=== PATIENT | female | born 1955 | race Caucasian/White ===

== ENCOUNTER 2016-06-12 18:15 | Emergency (ER) | payer MEDICARE, MEDICAID ==
[~2016-06-12] VITALS: Ht 152.4 cm; Wt 40.0 kg
[~2016-06-12 18:15] MED LIST: ADVA250A INH; ALBU6.7H INH; CELE20TA PO; DIAZ5; DUONI NEB; MAXZ25 PO; PRED10 PO; Z.0.OXYGEN INH; ZYRT10TA12 PO
[2016-06-12 18:31] VITALS: BP 186/79; PULSE 98; RESP 32; TEMP 98; O2SAT 100
--- NOTE | 2016-06-12 18:34 | PD ---
HPI Chief Complaint: Pain: Acute or Chronic Time Seen by Provider: 18:31 Travel History International Travel<30 days: No Contact w/Intl Traveler<30days: No Traveled to known affect area: No History of Present Illness HPI 60-year-old female with history of COPD on home O2, presents to the ER today with worsening and shortness of breath for several days. She denies any fevers , abdominal pains, or any other symptoms. She has noticed that her feet were swelling. Modifying Factors: None Associated Signs & Symptoms: Worsening shortness of breath Risk Factors: COPD PFSH Past Medical History Arthritis: Yes Asthma: Yes Autoimmune Disease: No Blood Disorders: No Anxiety: Yes Depression: Yes Heart Rhythm Problems: No Cancer: Yes (L BREAST CA) Cardiovascular Problems: No High Cholesterol: Yes Chemotherapy: No Chest Pain: Yes Congestive Heart Failure: No COPD: Yes Coronary Artery Disease: No Diabetes: No Endocrine: No Gastrointestinal Disorders: Yes (HX GERD) GERD: Yes Genitourinary: Yes ("NARROW URETERS") Headaches: Yes Hepatitis: No Hiatal Hernia: No Hypertension: Yes Immune Disorder: No Kidney Stones: Yes Musculoskeletal: Yes (SCOLIOSIS) Neurologic: Yes (VERTIGO, HEADACHES DAILY) Psychiatric: Yes (CLAUSTRAPHOBIA, ANXIETY, DEPRESSION,PANIC ATTACKS) Reproductive: No Respiratory: Yes (COPD, EMPHYSEMA) Myocardial Infarction: No Radiation Therapy: Yes (2013) Thyroid Disease: No Menopausal: Yes Dilation and Curettage (D&C): Yes Past Surgical History Abdominal Surgery: Yes (CHOLECYSTECTOMY) AICD: No Body Medical Devices: N/A Cardiac Surgery: No Cholecystectomy: Yes Ear Surgery: No Endocrine Surgery: No Eye Surgery: Yes (CATARACT BILAT) Genitourinary Surgery: Yes (CYSTO, URETEROSTOMY, CALCULI RETRIEVAL) Gynecologic Surgery: Yes (D+C) Joint Replacement: No Oral Surgery: Yes (UPPER DENTURES) Pacemaker: No Thoracic Surgery: No Other Surgery: Yes Social History Alcohol Use: Yes (OCC) Tobacco Use: No (QUIT 2008) Substance Use: No Allergies-Medications (Allergen,Severity, Reaction): Coded Allergies: Cephalosporins (Verified Allergy, Severe, ANAPHALACTIC, 06/12/16) DENIES ALLERGY ON 07/22/12!!! STATES ANAPHYLAXIS WAS "PANIC ATTACK" Doxycycline (Verified Allergy, Severe, 06/12/16) Levaquin (Verified Allergy, Severe, SWELLING AND REDNESS, 06/12/16) Paxil (Verified Allergy, Severe, 06/12/16) Penicillin (Verified Allergy, Severe, 06/12/16) SSRI-Serotonin Reuptake Inhib (Verified Allergy, Severe, 06/12/16) Theophylline (Verified Allergy, Severe, Flushing, 06/12/16) Wellbutrin (Verified Allergy, Severe, 06/12/16) Reported Meds & Prescriptions Reported Meds & Active Scripts Active Reported Hydrocodone-Acetaminophen 10-325 mg Tab 1 Tab PO Q6H PRN Prednisone 20 Mg Tab 20 Mg PO BID Maxzide-25 (Triamterene-Hydrochlorothiazide) 37.5-25 Mg Tab 1 Tab PO DAILY Advair Diskus Inh (Fluticasone-Salmeterol Inh) 250-50 Mcg/Blist Aer 1 Puff INH BID Rinse mouth after use. Valium (Diazepam) 5 Mg Tab 5 Mg PO BID PRN Celexa (Citalopram Hydrobromide) 20 Mg Tab 20 Mg PO DAILY Zyrtec Allergy (Cetirizine HCl) 10 Mg Tab 10 Mg PO DAILY Albuterol Neb (Albuterol Sulfate) 1.25 Mg/3 Ml Neb 1.25 Mg NEB Q4HR NEB PRN Proventil Hfa 6.7 GM Inh (Albuterol Sulfate) 90 Mcg/Act Aer 2 Puff INH Q4-6H PRN Review of Systems Except as stated in HPI: all other systems reviewed are Neg Physical Exam Narrative GENERAL: Thin, well-developed elderly white female patient in mild respiratory distress at rest. SKIN: Warm and dry. HEAD: Normocephalic. EYES: No scleral icterus. No injection or drainage. NECK: Supple, trachea midline. CARDIOVASCULAR: Regular rate and rhythm without murmurs, gallops, or rubs. RESPIRATORY: Breath sounds equal and decreased throughout bilaterally. Moderate accessory muscle use. GASTROINTESTINAL: Abdomen soft, non-tender, nondistended. MUSCULOSKELETAL: No cyanosis, or edema. BACK: Nontender without obvious deformity. No CVA tenderness. Data Data Last Documented VS Vital Signs Date Time Temp Pulse Resp B/P Pulse Ox O2 Delivery O2 Flow Rate FiO2 06/12/16 18:38 99 06/12/16 18:38 Nasal Cannula 2 06/12/16 18:31 98.0 98 32 186/79 Orders Complete Blood Count With Diff (06/12/16 18:31) Comprehensive Metabolic Panel (06/12/16 18:31) B-Type Natriuretic Peptide (06/12/16 18:31) Iv Access Insert/Monitor (06/12/16 18:31) Electrocardiogram (06/12/16 18:31) Ecg Monitoring (06/12/16 18:31) Oximetry (06/12/16 18:31) Oxygen Administration (06/12/16 18:31) Chest, Single Ap (06/12/16 18:31) Sodium Chloride 0.9% Flush (Ns Flush) (06/12/16 18:45) Methylprednisolone So Succ Inj (Solumedr (06/12/16 18:45) Albuterol-Ipratropium Neb (Duoneb Neb) (06/12/16 18:45) MDM Medical Decision Making Medical Screen Exam Complete: Yes Emergency Medical Condition: Yes Medical Record Reviewed: Yes Differential Diagnosis Shortness of breathCOPD exacerbation versus pneumonia versus CHF Narrative Course Patient is initiated on Solu-Medrol and nebulizers in the ER. Lab work and chest x-ray ordered. Physician Communication Physician Communication Case is signed out to Dr. Deleon at 7 PM. Disposition based on findings and reevaluation after nebulizers. Diagnosis Primary Impression: COPD (chronic obstructive pulmonary disease) Ty Denny MD Jun 12, 2016 18:33
[2016-06-12 18:38] VITALS: O2SAT 99
[2016-06-12] MEDS ORDERED: ZYRT10TA PO (18:43)
[2016-06-12] MEDS ORDERED: ALBU1.25 NEB (18:43)
[2016-06-12] MEDS ORDERED: ALBU6.7H INH (18:43)
[2016-06-12] MEDS ORDERED: CELE20TA PO (18:43)
[2016-06-12] MEDS ORDERED: HYDR-3583 PO (18:44)
[2016-06-12] MEDS ORDERED: MAXZTAB PO (18:44)
[2016-06-12] MEDS ORDERED: ADVA250A INH (18:44)
[2016-06-12] MEDS ORDERED: DIAZ5 PO (18:44)
[2016-06-12] MEDS ORDERED: PRED20 PO (18:44)
[2016-06-12] MEDS ORDERED: methylPREDNISolone SOD SUCC 125 MG/2 ML VIAL IVP ONE (18:45)
[2016-06-12] MEDS ORDERED: SODIUM CHLORIDE 0.9% FLUSH 5 ML FLUSH IVF PRN (18:45)
[2016-06-12 19:00] VITALS: O2SAT 95
[2016-06-12] MEDS: RESP: ALBUTEROL 2.5 MG/IPRATROPIUM 0.5 MG NEB (SCH) INH (19:02)
[2016-06-12 19:24] LABS: BASOPHIL % 0.4 % (0.0-2.0); EOSINOPHIL # 0.1 TH/MM3 (0-0.4); EOSINOPHIL % 1.7 % (0.0-4.0); HEMATOCRIT 37.1 % (35.0-46.0); HEMO FLAGS DIFF FINAL; LYMPH % 17.3 % (9.0-44.0); LYMPHOCYTE # 1.2 TH/MM3 (1.0-4.8); MEAN CELL VOLUME 92.6 FL (80.0-100.0); MEAN CORPUSCULAR HEMOGLOBIN 30.8 PG (27.0-34.0); MEAN CORPUSCULAR HGB CONC 33.3 % (32.0-36.0); MONO % 9.4 % (0.0-8.0); NEUT % 71.2 % (16.0-70.0); PLATELET COUNT 256 TH/MM3 (150-450); RED BLOOD COUNT 4.01 MIL/MM3 (4.00-5.30); RED CELL DISTRIBUTION WIDTH 12.8 % (11.6-17.2)
--- NOTE | 2016-06-12 19:24 | PD ---
Physical Exam Date Seen by Provider: Jun 12, 2016 [facility] Care assumed at 1900. Patient is here for increasing shortness of breath, lower extremity swelling and pain and increased low back pain. GENERAL: Patient is currently receiving a nebulizer treatment. She is able to speak to me complete sentences. She seems somewhat anxious. SKIN: Warm and dry. HEAD: Atraumatic. Normocephalic. Bitemporal wasting. EYES: Pupils equal and round. ENT: No nasal bleeding or discharge. NECK: Trachea midline. Neck is supple. CARDIOVASCULAR: Regular rate and rhythm. Heart sounds are normal. RESPIRATORY: No accessory muscle use. She does have some crackles. GASTROINTESTINAL: Abdomen soft, non-tender, nondistended. MUSCULOSKELETAL: No obvious deformities. No edema. Tender to palpation in the lower L-spine. The tenderness is midline. NEUROLOGICAL: Awake and alert. No obvious cranial nerve deficits. Motor grossly within normal limits. Normal speech. PSYCHIATRIC: Appropriate mood and affect. Seems somewhat anxious. Data Data Last Documented VS Vital Signs Date Time Temp Pulse Resp B/P Pulse Ox O2 Delivery O2 Flow Rate FiO2 06/12/16 23:02 86 16 135/69 95 Nasal Cannula 3 06/12/16 18:31 98.0 Orders Complete Blood Count With Diff (06/12/16 18:31) Comprehensive Metabolic Panel (06/12/16 18:31) B-Type Natriuretic Peptide (06/12/16 18:31) Iv Access Insert/Monitor (06/12/16 18:31) Electrocardiogram (06/12/16 18:31) Ecg Monitoring (06/12/16 18:31) Oximetry (06/12/16 18:31) Oxygen Administration (06/12/16 18:31) Chest, Single Ap (06/12/16 18:31) Sodium Chloride 0.9% Flush (Ns Flush) (06/12/16 18:45) Methylprednisolone So Succ Inj (Solumedr (06/12/16 18:45) Albuterol-Ipratropium Neb (Duoneb Neb) (06/12/16 18:45) Spine, Lumbar Comp W/Obliq (06/12/16 19:17) Urinalysis - C+S If Indicated (06/12/16 19:17) Lorazepam Inj (Ativan Inj) (06/12/16 19:30) Morphine Inj (Morphine Inj) (06/12/16 19:30) Cath For Specimen (06/12/16 22:50) Urine Culture (06/12/16 23:00) Labs Laboratory Tests Test 06/12/16 06/12/16 18:51 23:00 White Blood Count 7.0 TH/MM3 Red Blood Count 4.01 MIL/MM3 Hemoglobin 12.4 GM/DL Hematocrit 37.1 % Mean Corpuscular Volume 92.6 FL Mean Corpuscular Hemoglobin 30.8 PG Mean Corpuscular Hemoglobin 33.3 % Concent Red Cell Distribution Width 12.8 % Platelet Count 256 TH/MM3 Mean Platelet Volume 7.0 FL Neutrophils (%) (Auto) 71.2 % Lymphocytes (%) (Auto) 17.3 % Monocytes (%) (Auto) 9.4 % Eosinophils (%) (Auto) 1.7 % Basophils (%) (Auto) 0.4 % Neutrophils # (Auto) 5.0 TH/MM3 Lymphocytes # (Auto) 1.2 TH/MM3 Monocytes # (Auto) 0.7 TH/MM3 Eosinophils # (Auto) 0.1 TH/MM3 Basophils # (Auto) 0.0 TH/MM3 CBC Comment DIFF FINAL Differential Comment Sodium Level 143 MEQ/L Potassium Level 3.8 MEQ/L Chloride Level 101 MEQ/L Carbon Dioxide Level 36.3 MEQ/L Anion Gap 6 MEQ/L Blood Urea Nitrogen 5 MG/DL Creatinine 0.30 MG/DL Estimat Glomerular Filtration 225 ML/MIN Rate Random Glucose 72 MG/DL Calcium Level 7.5 MG/DL Total Bilirubin 0.1 MG/DL Aspartate Amino Transf 19 U/L (AST/SGOT) Alanine Aminotransferase 19 U/L (ALT/SGPT) Alkaline Phosphatase 84 U/L B-Type Natriuretic Peptide 20 PG/ML Total Protein 5.4 GM/DL Albumin 2.8 GM/DL Urine Color YELLOW Urine Turbidity CLEAR Urine pH 7.0 Urine Specific [place] 1.009 Urine Protein NEG mg/dL Urine Glucose (UA) NEG mg/dL Urine Ketones TRACE mg/dL Urine Occult Blood NEG Urine Nitrite NEG Urine Bilirubin NEG Urine Urobilinogen LESS THAN 2.0 MG/DL Urine Leukocyte Esterase NEG Urine RBC LESS THAN 1 /hpf Urine WBC LESS THAN 1 /hpf Microscopic Urinalysis Comment CATH-CULTURE IND MDM Supervised Visit with PIOTR: No Interpretation(s) EKG shows a normal sinus rhythm with no acute ischemic change. Differential Diagnosis Differential diagnosis of dyspnea includes but is not limited to congestive heart failure, pneumonia, wheezing, pneumothorax, pulmonary embolism. Differential diagnosis of back pain includes but is not limited to muscular low back pain, DDD, spinal stenosis, epidural abscess, sciatica, kidney infection or stone. Narrative Course Patient is being evaluated for increased dyspnea as well as low back pain. Chest x-ray is negative to the radiologist's interpretation. Chest x-ray was independently viewed by me. L-spine series shows degenerative changes and compression deformities at L2, L3 and L4. Lumbar films were independently viewed by me. CBC is normal. Chemistries are unremarkable. BNP is normal. The only thing pending at this point is her UA. So far, I have not found any acute cause for her dyspnea. But her current respiratory rate is 19 with sats of 98% on 3 L by nasal cannula. This patient is on chronic oxygen at home. I suspect that she is at baseline as far as her respiratory status is concerned. The patient has been sound asleep here in no distress. UA is negative. 10:30 PM This patient's disposition has been markedly prolonged because I do not yet have a urine from her. I really don't think that the results of the UA will make any difference in her disposition. However, I will not discharge her until I get the results of the UA. Diagnosis Primary Impression: COPD (chronic obstructive pulmonary disease) Qualified Code: J44.1 - Chronic obstructive pulmonary disease with acute exacerbation Additional Impression: Low back pain Qualified Code: M54.5 - Chronic midline low back pain without sciatica Additional Instruction: Continue current treatment. See your doctor for ongoing symptoms. Disposition: 01 DISCHARGE HOME Condition: Stable Paulette Deleon MD Jun 12, 2016 19:24
[2016-06-12] MEDS ORDERED: LORazepam 2 MG/ML VIAL IV PUSH ONE (19:30)
[2016-06-12] MEDS ORDERED: MORPHINE SULFATE 8 MG/ML INJ IV PUSH ONE (19:30)
--- NOTE | 2016-06-12 19:38 | RADRPT ---
EXAM DATE/TIME: 06/12/2016 19:07 [facility] COMPARISON: No previous studies available for comparison. INDICATIONS : Short of breath for several days. MEDICAL HISTORY : Chronic obstructive pulmonary disease. Cardiovascular disease. Renal calculi. Carcinoma, breast . SURGICAL HISTORY : Cholecystectomy. ENCOUNTER: Initial ACUITY: 3 days PAIN SCORE: 5/10 LOCATION: Bilateral chest FINDINGS: A single view of the chest demonstrates hyperinflation which can be seen with COPD. No infiltrates a re seen. Heart is normal in size. The mediastinal contours are unremarkable. Osseous structures are intact. Scoliotic changes again seen. CONCLUSION: Hyperinflation which can be seen with COPD. No acute cardiopulmonary disease and no evidence for an infiltrate. Bean Mack MD on June 12, 2016 at 19:36 Board Certified Radiologist. This report was verified electronically.
[2016-06-12 19:50] LABS: ALKALINE PHOSPHATASE 84 U/L (45-117); ALT (GPT) 19 U/L (10-53); ANION GAP 6 MEQ/L (5-15); AST (GOT) 19 U/L (15-37); BICARBONATE 36.3 MEQ/L (21.0-32.0); BLOOD UREA NITROGEN 5 MG/DL (7-18); CHLORIDE 101 MEQ/L (98-107); GLOMERULAR FILTRATION RATE 225 ML/MIN (>89); POTASSIUM 3.8 MEQ/L (3.5-5.1); SODIUM (NA) 143 MEQ/L (136-145); TOTAL BILIRUBIN ADULT 0.1 MG/DL (0.2-1.0)
--- NOTE | 2016-06-12 19:59 | RADRPT ---
EXAM DATE/TIME: 06/12/2016 19:45 [facility] COMPARISON: No previous studies available for comparison. INDICATIONS : Patient complains of low back pain. MEDICAL HISTORY : Emphysema. Diabetes mellitus type II. fracture of lumbar SURGICAL HISTORY : None. ENCOUNTER: Initial ACUITY: 4 - 6 months PAIN SCORE: 10/10 LOCATION: Bilateral Lumbar FINDINGS: There are five non-rib bearing vertebral bodies. The vertebral bodies are in normal alignment withou t evidence of subluxation or scoliosis. The disc spaces are maintained. The posterior elements are intact without evidence of spondylolysis. Moderate compression fracture at L2 and mild compression f racture at L3. Mild loss of height at L4. The pedicles are intact. Osteopenia. Scoliosis and degenera tive changes. CONCLUSION: 1. Moderate compression fracture L2. 2. Mild compression fractures at L3 and L4. Bean Mack MD on June 12, 2016 at 19:55 Board Certified Radiologist. This report was verified electronically.
[2016-06-12 20:25] VITALS: BP 155/78; PULSE 103; RESP 19; O2SAT 98
[2016-06-12 23:02] VITALS: BP 135/69; PULSE 86; RESP 16; O2SAT 95
[2016-06-12 23:23] LABS: BLOOD, URINE NEG (NEG); GLUCOSE,URINE NEG (NEG); KETONE, URINE TRACE mg/dL (NEG); NITRITE,URINE NEG (NEG); URINE COLOR YELLOW (YELLW/STRAW)
[2016-06-12 23:32] LABS: COMMENT (UR) CATH-CULTURE IND; CULTURE IF INDICATED CATH CULTURE IND
[2016-06-13 02:00] VITALS: BP 132/62; PULSE 88; RESP 16; O2SAT 94
[2016-06-13 04:00] VITALS: BP 129/77; PULSE 87; RESP 18; O2SAT 97
[2016-06-13 06:00] VITALS: BP 134/72; PULSE 88; RESP 18; O2SAT 97
[2016-06-13 08:00] VITALS: BP 130/71; TEMP 97.8
--- NOTE | 2016-06-13 21:07 | EKG ---
Date Performed: 06/12/2016 Time Performed: 20:01:46 PTAGE: 60 years EKG: Sinus rhythm WITH SINUS ARRHYTHMIA NORMAL ECG PREVIOUS TRACING : 02/07/2016 20.12 DOCTOR: Lane Aranda Interpretating Date/Time 06/13/2016 21:03:02
== END 2016-06-13 08:00 | disposition home or self-care (01) ==
LOC: NEPC 18:15 → NEPA 06-13 08:00
DX: J44.9 Chronic obstructive pulmonary disease, unspecified (principal); Z99.81 Dependence on supplemental oxygen; M19.90 Unspecified osteoarthritis, unspecified site; F41.8 Other specified anxiety disorders; E78.00 Pure hypercholesterolemia, unspecified; I10 Essential (primary) hypertension; Z87.442 Personal history of urinary calculi; M41.9 Scoliosis, unspecified
CPT/HCPCS: 71010; 72110; 80053; 81001; 83880; 85025; 87086; 93005; 94640; 94664; 96374; 96375; 99284; J2060; J2270; J2930; P9612

== ENCOUNTER 2016-07-30 14:25 | Inpatient (IN) | payer MEDICARE, MEDICAID ==
[~2016-07-30] VITALS: Ht 147.3 cm; Wt 39.4 kg
[~2016-07-30 14:25] MED LIST changes: +ALBU1.25 NEB; -DIAZ5; +DIAZ5 PO; -DUONI NEB; +HYDR-3583 PO; -MAXZ25 PO; +MAXZTAB PO; -PRED10 PO; +PRED20 PO; -Z.0.OXYGEN INH; +ZYRT10TA PO; -ZYRT10TA12 PO
[2016-07-30 17:30] VITALS: BP 182/112; PULSE 106; RESP 22; TEMP 97.6; O2SAT 99
--- NOTE | 2016-07-30 18:04 | HHI.HP ---
HPI Service [facility] Hospitalists Primary Care Physician Power Monson MD, PhD Admission Diagnosis COPD exac/ Failure to Thrive Chief Complaint: SOB, cough, weight loss, persistent nausea with decreased appetite. Travel History International Travel<30 Days: No Contact w/Intl Traveler <30 Da: No Traveled to Known Affected Are: No History of Present Illness 60 yo WF with severe COPD, anxiety, compression frxs well known to me initially presented to my office for weight loss, back pain and worsening cough/sob. It was noted that pt was quite frail and weak on exam. Her sats were in low 90s even on 3 L/min nc and she had lost an additional 11 lbs since Apr 2016. She has lost total of 19 lbs since October 2015. She has noted persistent nausea with early satiety over last 2 mos. Has also been having considerable back pain a/w her vertebral fractures. She lives alone and has very scan transportation. It was deemed most appropriate to directly admit pt to hospital for further w/u. She was agreeable and actually anxious to have this w/u. Advised Dr Pool of admission. Review of Systems Constitutional: COMPLAINS OF: Fatigue, Weight loss, Change in appetite Eyes: DENIES: Blurred vision, Diplopia, Eye inflammation, Eye pain, Vision loss , Photosensitivity, Double Vision Ears, nose, mouth, throat: DENIES: Tinnitus, Hearing loss, Vertigo, Nasal discharge, Oral lesions, Throat pain, Hoarseness, Ear Pain, Running Nose, Epistaxis, Sinus Pain, Toothache, Odynophagia Respiratory: COMPLAINS OF: Cough, Wheezing, Shortness of breath, DENIES: Apneas, Snoring, Hemoptysis, Sputum production Cardiovascular: COMPLAINS OF: Dyspnea on Exertion, DENIES: Chest pain, Palpitations, Syncope, PND, Lower Extremity Edema, Orthopnea, Claudication Gastrointestinal: COMPLAINS OF: Abdominal pain, GERD, Nausea Musculoskeletal: COMPLAINS OF: Joint pain, Back pain, Neck pain, DENIES: Muscle aches, Stiffness, Joint Swelling Integumentary: DENIES: Abnormal pigmentation, Pruritus, Rash, Nail changes, Breast masses, Breast skin changes, Nipple discharge Hematologic/lymphatic: COMPLAINS OF: Bruising Immunologic/allergic: DENIES: Eczema, Urticaria Neurologic: DENIES: Abnormal gait, Headache, Localized weakness, Paresthesias, Seizures, Speech Problems, Tremor, Poor Balance Psychiatric: COMPLAINS OF: Anxiety, Depression, DENIES: Confusion, Mood changes, Hallucinations, Agitation, Suicidal Ideation, Homicidal Ideation, Delusions, History of Bipolar, History of Schizophrenia Past Family Social History Past Medical History COPD/Emphysema Chronic resp failure (on supplemental oxygen 3L/min) Weight loss HTN Hyperlipidemia Major depression Tspine frx 01/2016 Lspine frx 05/2016 Adnexal mass Hx of Breast CA (DCIS) Past Surgical History bilat cataract surgery 2012 Ch[facility] 1978 D&C Left breast lumpectomy and node dissection Kidney stone extraction 1975 Reported Medications Advair 250/50 1 puff bid Alb nebs 1 q 6 hr prn Cefuroxime 500mg bid for copd exac Pred 20mg/d for copd exac Celexa 20mg bid Clonidine 0.1 mg tid prn sbp >160 or sbp >90 Valium 5mg bid prn anxiety lortab 10/325mg 1 q 6h prn pain Oxygen 2-3 L/min nc Dyazide 37.5/25mg once daily Ventolin MDI 1-2 puffs q 4 prn Zyrtec 10mg/d. Allergies: Coded Allergies: Cephalosporins (Verified Allergy, Severe, ANAPHALACTIC, 06/12/16) DENIES ALLERGY ON 07/22/12!!! STATES ANAPHYLAXIS WAS "PANIC ATTACK" Doxycycline (Verified Allergy, Severe, 06/12/16) Levaquin (Verified Allergy, Severe, SWELLING AND REDNESS, 06/12/16) Paxil (Verified Allergy, Severe, 06/12/16) Penicillin (Verified Allergy, Severe, 06/12/16) SSRI-Serotonin Reuptake Inhib (Verified Allergy, Severe, 06/12/16) Theophylline (Verified Allergy, Severe, Flushing, 06/12/16) Wellbutrin (Verified Allergy, Severe, 06/12/16) Family History Breast CA- sister Lung CA- brother Renal Cell CA - brother Social History Previously occasional beer use, none in over a month No tobacco since 12/2008, smoked 1ppd for 35 yrs prior No illicits 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 SKIN: No rashes, ecchymoses or lesions. xerotic HEAD: Atraumatic. Normocephalic. No temporal or scalp tenderness. slight temporal wasting bilat. EYES: Pupils equal round and reactive. Extraocular motions intact. No scleral icterus. No injection or drainage. ENT: Nose without bleeding, purulent drainage or septal hematoma. Throat without erythema, tonsillar hypertrophy or exudate. Airway patent. NECK: Trachea midline. No JVD or lymphadenopathy. Supple, nontender, no meningeal signs. CARDIOVASCULAR: Regular rate and rhythm without murmurs, gallops, or rubs. Rate appx 100 on exam RESPIRATORY: Poor air movement,no fine crackles, few expiratory wheezes. GASTROINTESTINAL: Abdomen soft, nondistended. Mild ttp in epigastrium. No hepato -splenomegaly, or palpable masses. MUSCULOSKELETAL: Extremities without clubbing, cyanosis, or edema. No joint tenderness, effusion, or edema noted. No calf tenderness. TTP over lower Tspine and Lspine. NEUROLOGICAL: Awake and alert. Cranial nerves II through XII intact. Motor and sensory grossly within normal limits. relative global weakness. Normal speech. Assessment and Plan Problem List: (1) Failure to thrive in adult Status: Acute Plan: ? etiology. Possibly increased metabolic demand from worsening COPD, but underlying malignancy possible as well Check labs/imaging/have GI see pt re: chronic nausea and early satiety. (2) Weight loss Status: Acute Plan: as noted above (3) COPD (chronic obstructive pulmonary disease) Status: Chronic Plan: Will provide nebs, supplemental oxygen, steroids, abx. (4) Anxiety Status: Chronic Plan: continue rx. (5) HTN (hypertension) Status: Chronic Plan: continue rx. and prn meds (6) Chronic back pain Status: Chronic Plan: hx of multiple vertebral fractures in malnourished female. will provide pain meds. Check imaging. Discussed Condition With pt and Dr Pool Physician Certification 2 Midnight Certification Type: Admission for Inpatient Services Order for Inpatient Services The services are ordered in accordance with Medicare regulations or non- Medicare payer requirements, as applicable. In the case of services not specified as inpatient-only, they are appropriately provided as inpatient services in accordance with the 2-midnight benchmark. Estimated LOS (days): 3 days is the estimated time the patient will need to remain in the hospital, assuming treatment plan goals are met and no additional complications. Post-Hospital Plan: Not yet determined Problem Qualifiers (1) COPD (chronic obstructive pulmonary disease): (2) Chronic back pain: Power Monson MD PhD Jul 30, 2016 18:04
[2016-07-30 18:08] LABS: ALKALINE PHOSPHATASE 84 U/L (45-117); TOTAL BILIRUBIN ADULT 0.4 MG/DL (0.2-1.0)
[2016-07-30] MEDS ORDERED: MORPHINE SULFATE 4 MG/ML INJ IV PUSH PRN (18:15)
[2016-07-30] MEDS ORDERED: cloNIDine HCL 0.1 MG TAB PO PRN ×2 (18:15)
[2016-07-30] MEDS ORDERED: DIATRIZOATE MEGLUM/DIATRIZOATE SOD 9 ML CUP PO ONE (18:22)
[2016-07-30 18:29] LABS: ALT (GPT) 17 U/L (10-53); ANION GAP 8 MEQ/L (5-15); AST (GOT) 40 U/L (15-37); BICARBONATE 34.3 MEQ/L (21.0-32.0); BLOOD UREA NITROGEN 8 MG/DL (7-18); CHLORIDE 96 MEQ/L (98-107); GLOMERULAR FILTRATION RATE 157 ML/MIN (>89); POTASSIUM 5.2 MEQ/L (3.5-5.1); SODIUM (NA) 138 MEQ/L (136-145)
[2016-07-30] MEDS: amLODIPine BESYLATE 5 MG TAB PO SCH (19:08)
[2016-07-30] MEDS: AZITHROMYCIN INJ 500 MG in SODIUM CHLOR 0.9% 250 ML INJ 250 ML IV SCH (19:08)
[2016-07-30] MEDS: ACETAMINOPHEN/HYDROcodone 325 MG/10 MG TAB PO PRN (19:09)
[2016-07-30] MEDS: CITALOPRAM HYDROBROMIDE 20 MG TAB PO SCH (19:16)
[2016-07-30] MEDS: CETIRIZINE HCL 10 MG TAB PO SCH (19:16)
[2016-07-30] MEDS: ONDANSETRON HCL 4 MG/2 ML VIAL IV PUSH PRN (19:16)
[2016-07-30] MEDS ORDERED: LORazepam 2 MG/ML VIAL IV SCH (19:45)
[2016-07-30 19:53] LABS: AUTOMATED NEUTROPHIL # 7.2 TH/MM3 (1.8-7.7); BASOPHIL % 0.4 % (0.0-2.0); EOSINOPHIL # 0.2 TH/MM3 (0-0.4); EOSINOPHIL % 2.6 % (0.0-4.0); HEMATOCRIT 42.1 % (35.0-46.0); HEMO FLAGS DIFF FINAL; LYMPH % 11.4 % (9.0-44.0); LYMPHOCYTE # 1.1 TH/MM3 (1.0-4.8); MEAN CELL VOLUME 92.1 FL (80.0-100.0); MEAN CORPUSCULAR HEMOGLOBIN 31.5 PG (27.0-34.0); MEAN CORPUSCULAR HGB CONC 34.2 % (32.0-36.0); MONO % 8.3 % (0.0-8.0); NEUT % 77.3 % (16.0-70.0); PLATELET COUNT 236 TH/MM3 (150-450); RED BLOOD COUNT 4.57 MIL/MM3 (4.00-5.30); RED CELL DISTRIBUTION WIDTH 13.3 % (11.6-17.2); WHITE BLOOD COUNT 9.4 TH/MM3 (4.0-11.0)
[2016-07-30 20:00] VITALS: BP 210/106; PULSE 109; RESP 18; TEMP 97; O2SAT 100
[2016-07-30] MEDS: RESP: ALBUTEROL 2.5 MG/IPRATROPIUM 0.5 MG NEB (SCH) NEB (20:02)
[2016-07-30 20:08] VITALS: O2SAT 98
[2016-07-30 21:20] VITALS: BP 133/84
[2016-07-30] MEDS: methylPREDNISolone SOD SUCC 40 MG/1 ML VIAL IV PUSH SCH (21:25)
[2016-07-30] MEDS ORDERED: SODIUM CHLOR 0.9% 1000 ML INJ 1,000 ML IV SCH (21:45)
[2016-07-30] MEDS ORDERED: IOHEXOL 350 MG/ML 10 ML VIAL (for RAD DIAG) IV ONE (22:51)
--- NOTE | 2016-07-30 23:01 | RADRPT ---
EXAM DATE/TIME: 07/30/2016 22:40 [facility] COMPARISON: No previous studies available for comparison. INDICATIONS : Weight loss with cough; history of breast cancer. IV CONTRAST: 70 cc Omnipaque 350 (iohexol) IV ORAL CONTRAST: Partial prescribed oral contrast ingested. RADIATION DOSE: 3.98 CTDIvol (mGy) MEDICAL HISTORY : Cardiovascular disease. Hypertension. Carcinoma, breast.GERD, Diabetes SURGICAL HISTORY : Cholecystectomy. ENCOUNTER: Initial ACUITY: 1 day PAIN SCALE: 3/10 LOCATION: Abdomen/pelvis TECHNIQUE: Volumetric scanning of the abdomen and pelvis was performed. Using automated exposure control and ad justment of the mA and/or kV according to patient size, radiation dose was kept as low as reasonably achievable to obtain optimal diagnostic quality images. FINDINGS: Liver is within normal limits. Patient has had previous cholecystectomy. Mildly prominent common bile duct, presumably post cholecystectomy reservoir effect. Spleen, pancreas and adrenal glands are within normal limits. There is a lateral hydronephrosis, etiology uncertain but ureters have fairly normal caliber and coul d be on the basis of congenital UPJ. Left kidney is mildly atrophic. Both kidneys enhance normally. T here is a 4 mm nonobstructing left mid zone stone. No obstruction or acute inflammatory changes are seen in the gastrointestinal tract. 2.5 cm uterine fibroid noted. No free fluid seen in the pelvic cavity. There is no lymphadenopathy. No acute bony abnormality demonstrated. CONCLUSION: 1. Moderately severe bilateral hydronephrosis, possibly related to UPJ obstruction. Although I don't have the images, similar findings were described on the CT back in 2008. There is a 4 mm nonobstructi ng stone on the left. Left kidney is mildly atrophic. 2. No evidence of malignancy within the abdomen or pelvis. 3. Uterine fibroid. Fredi Schneider MD on July 30, 2016 at 22:53 Board Certified Radiologist. This report was verified electronically.
--- NOTE | 2016-07-30 23:07 | RADRPT ---
EXAM DATE/TIME: 07/30/2016 22:40 This report includes an Addendum and supersedes previous reports for this exam. [facility] COMPARISON: CT THORAX W CONTRAST, February 08, 2016, 14:04. INDICATIONS : Weight loss with cough; history of breast cancer. IV CONTRAST: 70 cc Omnipaque 350 (iohexol) IV ; Cumulative dose for multiple exams. RADIATION DOSE: 3.98 CTDIvol (mGy) ; Combined studies - Thorax/Abdomen/Pelvis MEDICAL HISTORY : Cardiovascular disease. Hypertension. Carcinoma, breast.GERD, Diabetes. SURGICAL HISTORY : Cholecystectomy. ENCOUNTER: Initial ACUITY: 1 day PAIN SCALE: 5/10 LOCATION: chest TECHNIQUE: Volumetric scanning of the chest was performed. Using automated exposure control and adjustment of t he mA and/or kV according to patient size, radiation dose was kept as low as reasonably achievable to obtain optimal diagnostic quality images. FINDINGS: Emphysema again noted. Mild right upper lobe scarring again noted. There is localized consolidation i n the lingular division of the left upper lobe which appear similar to before. No pleural effusion. N o pneumothorax. No mediastinal, hilar or axillary lymphadenopathy demonstrated. Heart size stable, normal. Thoracic aorta is tortuous. No aneurysm. The right subclavian artery that passes behind both the trac hea and esophagus again noted. No lytic or sclerotic lesion is seen of the visualized osseous structures. [id number] compressi on deformities have developed of multiple lower thoracic and upper lumbar vertebral bodies. There is moderate scoliosis. CONCLUSION: 1. Emphysema with right upper lobe scarring and mild atypical, most likely inflammatory infiltrate in the lingula again noted. 2. No evidence of malignancy of the chest. 3. Tortuous thoracic aorta. 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 4. Vertebral body compression fractures have developed since the prior study, presumably osteoporotic in nature. These are in the lower thoracic and upper lumbar spine. Clearly see an underlying bone le justin.. Fredi Schneider MD on July 30, 2016 at 23:00 Board Certified Radiologist. This report was verified electronically. ADDENDUM: I have been asked to review this study. The fourth impression should read that no clearly seen underl gaby bone lesion is present. Fredi Lewis MD on August 08, 2016 at 10:07 Board Certified Radiologist. This report was verified electronically.
[2016-07-31] VITALS (8 sets, daily range): BP systolic 103–132; BP diastolic 68–83; PULSE 76–107; RESP 17–20; TEMP 96.9–97.5; O2SAT 95–100
[2016-07-31 07:49] LABS: ALKALINE PHOSPHATASE 75 U/L (45-117); ALT (GPT) 15 U/L (10-53); ANION GAP 6 MEQ/L (5-15); AST (GOT) 14 U/L (15-37); BICARBONATE 39.7 MEQ/L (21.0-32.0); BLOOD UREA NITROGEN 5 MG/DL (7-18); CHLORIDE 91 MEQ/L (98-107); GLOMERULAR FILTRATION RATE 202 ML/MIN (>89); POTASSIUM 3.7 MEQ/L (3.5-5.1); SODIUM (NA) 137 MEQ/L (136-145); TOTAL BILIRUBIN ADULT 0.3 MG/DL (0.2-1.0)
[2016-07-31] MEDS: RESP: ALBUTEROL 2.5 MG/IPRATROPIUM 0.5 MG NEB (SCH) NEB ×3 (07:52→20:21)
--- NOTE | 2016-07-31 09:09 | HHI.PR ---
Subjective Remarks pt describes early satiety and nausea. no appetite. Objective Vitals cachectic oriented heartreg lung improved air entry abd s/nt ext no edema Vital Signs Date Time Temp Pulse Resp B/P Pulse Ox O2 Delivery O2 Flow Rate FiO2 07/31/16 07:54 100 Nasal Cannula 3.00 07/31/16 04:00 97.5 76 17 103/70 99 07/31/16 00:00 97.0 86 17 117/77 100 07/30/16 21:20 133/84 07/30/16 20:08 98 Nasal Cannula 2.00 07/30/16 20:00 97.0 109 18 100 210/106 07/30/16 17:30 97.6 106 22 182/112 99 07/30/16 07/30/16 07/31/16 15:00 23:00 07:00 Intake Total 560 ml Balance 560 ml Intake IV Total 560 ml Result Diagram: 07/30/16 1902 07/31/16 0617 A/P Problem List: (1) Failure to thrive in adult Status: Acute Plan: Pt admitted with severe weight loss. nausea. early satiety and poor appetite There has been concern by her pcp for occult malignancy. GI consulted for possible endoscopy. If neg could also consider ges. supportive care CT a/p results noted. 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 (2) Weight loss Status: Acute Plan: as noted above (3) COPD (chronic obstructive pulmonary disease) Status: Acute Plan: acute copd flare on steroids/abx/nebs (4) Anxiety Status: Chronic Plan: continue rx. (5) HTN (hypertension) Status: Chronic Plan: continue rx. and prn meds (6) Chronic back pain Status: Chronic Plan: hx of multiple vertebral fractures in malnourished female. will provide pain meds. Check imaging. Problem Qualifiers (1) COPD (chronic obstructive pulmonary disease): (2) Chronic back pain: Garret Pool MD Jul 31, 2016 09:09
[2016-07-31] MEDS: ACETAMINOPHEN/HYDROcodone 325 MG/10 MG TAB PO PRN ×3 (10:40→23:25)
[2016-07-31] MEDS: amLODIPine BESYLATE 5 MG TAB PO SCH (10:40)
[2016-07-31] MEDS: PANTOPRAZOLE SOD 40 MG DELAYED RELEASE TAB PO SCH (10:40)
[2016-07-31] MEDS: CITALOPRAM HYDROBROMIDE 20 MG TAB PO SCH (10:40)
[2016-07-31] MEDS: CETIRIZINE HCL 10 MG TAB PO SCH (10:40)
[2016-07-31] MEDS: methylPREDNISolone SOD SUCC 40 MG/1 ML VIAL IV PUSH SCH ×2 (10:41→21:14)
--- NOTE | 2016-07-31 12:02 | PD.CONS ---
HPI History of Present Illness This is a 60 year old white female with past medical history of severe COPD on o2 at home, anxiety, compression frxs who is here for evaluation of wt loss and persistent nausea. Patient states it all started when she had the back frxs. She lost a total of 19 ibs since October of last year, she is now 70 ibs. She reports early satiety on going for 2 months, loss of appetite, constant nausea but no vomiting. Last EGD/colonoscopy > than [address] (07/30/16) Moderately severe bilateral hydronephrosis, possibly related to UPJ obstruction. Although I don't have the images, similar findings were described on the CT back in 2008. There is a 4 mm nonobstructing stone on the left. Left kidney is mildly atrophic. No evidence of malignancy within the abdomen or pelvis. Patient states sometimes food go down the wrong pipe and has burning when this happens. She denies vomiting, abdomen pain, diarrhea, hematochezia or melena. She has mild constipation. PFSH Past Medical History COPD/Emphysema Chronic resp failure (on supplemental o2 Weight loss HTN Hyperlipidemia Major depression Tspine frx 01/2016 Lspine frx 05/2016 Adnexal mass Hx of Breast CA (DCIS) Past Surgical History bilat cataract surgery 2012 [place] 1977 D&C Left breast lumpectomy and node dissection Kidney stone extraction 1975 Coded Allergies: Cephalosporins (Verified Allergy, Severe, ANAPHALACTIC, 06/12/16) DENIES ALLERGY ON 07/22/12!!! STATES ANAPHYLAXIS WAS "PANIC ATTACK" Doxycycline (Verified Allergy, Severe, 06/12/16) Levaquin (Verified Allergy, Severe, SWELLING AND REDNESS, 06/12/16) Paxil (Verified Allergy, Severe, 06/12/16) Penicillin (Verified Allergy, Severe, 06/12/16) Theophylline (Verified Allergy, Severe, Flushing, 06/12/16) Wellbutrin (Verified Allergy, Severe, 06/12/16) Medications Current Medications Medications (Trade) Dose Ordered Sig/Shaheen Route Start Time Stop Time Status Last Admin (Catapres) 0.1 mg Q4H PRN PO 07/30/16 18:15 07/30/16 19:22 (Zofran Inj) 4 mg Q6HR PRN IV PUSH 07/30/16 18:15 07/30/16 19:16 Methylprednisolone Sodium Succinate 40 mg 40 mg Q12HR IV PUSH 07/30/16 21:00 07/31/16 10:41 (Zithromax Inj/ NS 250 ml Inj) 250 ml @ 250 mls/hr DAILY@18 IV 07/30/16 19:00 07/30/16 19:08 ([place] 10-325 Mg) 1 tab Q6H PRN PO 07/30/16 18:15 07/31/16 10:40 (CeleXA) 20 mg DAILY PO 07/30/16 18:15 07/31/16 10:40 (Catapres) 0.1 mg Q6H PRN PO 07/30/16 18:15 (Valium) 5 mg Q12H PRN PO 07/30/16 18:15 (ZyrTEC) 10 mg DAILY PO 07/30/16 18:15 07/31/16 10:40 (Norvasc) 5 mg DAILY PO 07/30/16 18:15 07/31/16 10:40 (Morphine Inj) 2 mg Q3H PRN IV PUSH 07/30/16 18:15 (Protonix) 40 mg DAILY PO 07/31/16 09:00 07/31/16 10:40 Family History No family hx of colon cancer Social History alcohol daily about one drink Former smoker No illicit drug use Review of Systems Constitutional: COMPLAINS OF: Fatigue, Weight loss, DENIES: Chills Endocrine: DENIES: Polyuria Eyes: DENIES: Double Vision Ears, nose, mouth, throat: DENIES: Hoarseness Respiratory: COMPLAINS OF: Shortness of breath Cardiovascular: DENIES: Lower Extremity Edema Gastrointestinal: COMPLAINS OF: Constipation, Nausea, Anorexia, DENIES: Abdominal pain, Black stools, Bloody stools, Diarrhea, Vomiting, Difficulty Swallowing, Odynophagia, Swelling of Abdomen, Heartburn, Hematemesis Genitourinary: DENIES: Hematuria Musculoskeletal: COMPLAINS OF: Back pain Integumentary: DENIES: Jaundice Hematologic/lymphatic: DENIES: Bruising Immunologic/allergic: DENIES: Eczema Neurologic: DENIES: Abnormal gait Psychiatric: COMPLAINS OF: Anxiety GI Exam Vitals I&O Vital Signs Date Time Temp Pulse Resp B/P Pulse Ox O2 Delivery O2 Flow Rate FiO2 07/31/16 08:00 97.0 107 20 132/83 100 07/31/16 07:54 100 Nasal Cannula 3.00 07/31/16 04:00 97.5 76 17 103/70 99 07/31/16 00:00 97.0 86 17 117/77 100 07/30/16 21:20 133/84 07/30/16 20:08 98 Nasal Cannula 2.00 07/30/16 20:00 97.0 109 18 100 210/106 07/30/16 17:30 97.6 106 22 182/112 99 I/O 07/30/16 07/30/16 07/30/16 07/31/16 07/31/16 07/31/16 07:00 15:00 23:00 07:00 15:00 23:00 Intake Total 560 ml Balance 560 ml Intake IV Total 560 ml Imaging Last Impressions Chest CT 07/30/16 0000 Signed Impressions: Service Date/Time: Saturday, July 30, 2016 22:40 - CONCLUSION: 1. Emphysema with right upper lobe scarring and mild atypical, most likely inflammatory infiltrate in the lingula again noted. 2. No evidence of malignancy of the chest. 3. Tortuous thoracic aorta. 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 4. Vertebral body compression fractures have developed since the prior study, presumably osteoporotic in nature. These are in the lower thoracic and upper lumbar spine. Clearly see an underlying bone lesion.. Fredi Schneider MD Abdomen/Pelvis CT 07/30/16 0000 Signed Impressions: Service Date/Time: Saturday, July 30, 2016 22:40 - CONCLUSION: 1. Moderately severe bilateral hydronephrosis, possibly related to UPJ obstruction. Although I don't have the images, similar findings were described on the CT back in 2008. There is a 4 mm nonobstructing stone on the left. Left kidney is mildly atrophic. 2. No evidence of malignancy within the abdomen or pelvis. 3. Uterine fibroid. Fredi Schneider MD Laboratory Test 07/30/16 07/30/16 07/31/16 17:25 19:02 06:17 Sodium Level 138 MEQ/L 137 MEQ/L Potassium Level 5.2 MEQ/L 3.7 MEQ/L Chloride Level 96 MEQ/L 91 MEQ/L Carbon Dioxide Level 34.3 MEQ/L 39.7 MEQ/L Anion Gap 8 MEQ/L 6 MEQ/L Blood Urea Nitrogen 8 MG/DL 5 MG/DL Creatinine 0.41 MG/DL 0.33 MG/DL Estimat Glomerular Filtration 157 ML/MIN 202 ML/MIN Rate Random Glucose 92 MG/DL 120 MG/DL Calcium Level 9.3 MG/DL 8.4 MG/DL Total Bilirubin 0.4 MG/DL 0.3 MG/DL Aspartate Amino Transf 40 U/L 14 U/L (AST/SGOT) Alanine Aminotransferase 17 U/L 15 U/L (ALT/SGPT) Alkaline Phosphatase 84 U/L 75 U/L C-Reactive Protein 1.11 MG/DL Total Protein 6.7 GM/DL 5.7 GM/DL Albumin 3.3 GM/DL 2.9 GM/DL Prealbumin 13 MG/DL White Blood Count 9.4 TH/MM3 Red Blood Count 4.57 MIL/MM3 Hemoglobin 14.4 GM/DL Hematocrit 42.1 % Mean Corpuscular Volume 92.1 FL Mean Corpuscular Hemoglobin 31.5 PG Mean Corpuscular Hemoglobin 34.2 % Concent Red Cell Distribution Width 13.3 % Platelet Count 236 TH/MM3 Mean Platelet Volume 7.7 FL Neutrophils (%) (Auto) 77.3 % Lymphocytes (%) (Auto) 11.4 % Monocytes (%) (Auto) 8.3 % Eosinophils (%) (Auto) 2.6 % Basophils (%) (Auto) 0.4 % Neutrophils # (Auto) 7.2 TH/MM3 Lymphocytes # (Auto) 1.1 TH/MM3 Monocytes # (Auto) 0.8 TH/MM3 Eosinophils # (Auto) 0.2 TH/MM3 Basophils # (Auto) 0.0 TH/MM3 CBC Comment DIFF FINAL Differential Comment Physical Examination HEENT: normocephalic; atraumatic; no jaundice. Throat is clear. NECK: Neck is supple, no JVD, no lymphadenopathy. CHEST: Poor air movement, few expiratory wheezes. CARDIAC: Regular rate and rhythm with no murmur gallop or rubs. ABDOMEN: Soft, nondistended, some tenderness to palpation ; no hepatosplenomegaly; bowel sounds are present in all four quadrants. EXTREMITIES: No clubbing, cyanosis, or edema. SKIN: Normal; no rash; no jaundice. FUR LINER: No focal deficits; alert and oriented times three. Assessment and Plan Plan - Failure to thrive/wt loss/ persistent nausea- She lost a total of 19 ibs since October of last year, she is now 70 ibs. She reports early satiety on going for 2 months, loss of appetite, constant nausea but no vomiting. Last EGD/ colonoscopy > than [address] (07/30/16) Moderately severe bilateral hydronephrosis, possibly related to UPJ obstruction. Although I don't have the images, similar findings were described on the CT back in 2008. There is a 4 mm nonobstructing stone on the left. Left kidney is mildly atrophic. No evidence of malignancy within the abdomen or pelvis. Patient states sometimes food go down the wrong pipe and has burning when this happens. She denies vomiting, abdomen pain, diarrhea, hematochezia or melena. She has mild constipation. - Nausea- LFTs normal, ct as above - severe COPD on o2 at home, anxiety, compression frxs Plan: - STEFFANY - EGD/colonoscopy recommended, but patient would like to think about it and wishes to wait one more day - Will plan for EGd/colonoscopy on Friday - Obtain consents - Clear liquid in the am - Golytely tomorrow - NPO tomorrow mn - Supportive care - Patient seen and examined by dr. Mckeon and myself and this note is written on his behalf. Ranjit Ozuna Jul 31, 2016 12:02 Ranjit Ozuna Jul 31, 2016 12:02
[2016-07-31] MEDS: ONDANSETRON HCL 4 MG/2 ML VIAL IV PUSH PRN (13:00)
[2016-07-31] MEDS: DIAZEPAM 5 MG TAB PO PRN (15:20)
[2016-07-31] MEDS: AZITHROMYCIN INJ 500 MG in SODIUM CHLOR 0.9% 250 ML INJ 250 ML IV SCH (17:29)
[2016-08-01] VITALS (8 sets, daily range): BP systolic 117–159; BP diastolic 74–98; PULSE 82–108; RESP 16–20; TEMP 96.3–98.2; O2SAT 93–99
[2016-08-01] MEDS: RESP: ALBUTEROL 2.5 MG/IPRATROPIUM 0.5 MG NEB (SCH) NEB ×4 (08:04→19:11)
--- NOTE | 2016-08-01 09:33 | HHI.PR ---
Subjective Remarks more sob today. asking for more pain meds she is not sure about taking the prep for endoscopy. Objective Vitals heart reg lung ethel wheezing abd s/nt ext no edema cachectic Vital Signs Date Time Temp Pulse Resp B/P Pulse Ox O2 Delivery O2 Flow Rate FiO2 08/01/16 08:05 99 Nasal Cannula 2.00 08/01/16 07:50 96.5 82 20 136/78 99 Manual Cuff/Auscultation 08/01/16 04:00 96.3 100 16 159/98 95 08/01/16 00:00 96.3 93 16 125/74 97 07/31/16 20:22 96 Nasal Cannula 2.00 07/31/16 20:00 97.0 94 18 105/73 95 07/31/16 16:00 96.9 89 20 109/68 98 07/31/16 12:00 97.2 94 20 121/78 98 07/31/16 07/31/16 08/01/16 15:00 23:00 07:00 Intake Total 840 ml 300 ml 150 ml Output Total 400 ml 200 ml Balance 840 ml -100 ml -50 ml Intake Oral 840 ml 300 ml 150 ml Output Urine Total 400 ml 200 ml # Voids 2 # Bowel Movements 0 0 Result Diagram: 07/30/16 1902 07/31/16 0617 A/P Problem List: (1) Failure to thrive in adult Status: Acute Plan: Pt admitted with severe weight loss. nausea. early satiety and poor appetite There has been concern by her pcp for occult malignancy. GI consulted for endoscopy. If neg could also consider ges. Pt hesitant to undergo the endoscopy and says she may not be able to take the prep. supportive care CT a/p results noted. 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 (2) COPD (chronic obstructive pulmonary disease) Status: Acute Plan: acute copd flare worse today. increase nebs/solumedrol (3) Weight loss Status: Acute Plan: as noted above (4) Anxiety Status: Chronic Plan: continue rx. (5) HTN (hypertension) Status: Chronic Plan: continue rx. and prn meds (6) Chronic back pain Status: Chronic Plan: hx of multiple vertebral fractures in malnourished female. will provide pain meds. Check imaging. Problem Qualifiers (1) COPD (chronic obstructive pulmonary disease): (2) Chronic back pain: Garret Pool MD Aug 01, 2016 09:33
[2016-08-01] MEDS: amLODIPine BESYLATE 5 MG TAB PO SCH (10:03)
[2016-08-01] MEDS: CITALOPRAM HYDROBROMIDE 20 MG TAB PO SCH (10:03)
[2016-08-01] MEDS: CETIRIZINE HCL 10 MG TAB PO SCH (10:03)
[2016-08-01] MEDS: PANTOPRAZOLE SOD 40 MG DELAYED RELEASE TAB PO SCH (10:03)
[2016-08-01] MEDS: methylPREDNISolone SOD SUCC 125 MG/2 ML VIAL IV PUSH SCH ×3 (10:34→21:37)
[2016-08-01] MEDS: ONDANSETRON HCL 4 MG/2 ML VIAL IV PUSH PRN ×2 (10:34→16:16)
[2016-08-01] MEDS: ACETAMINOPHEN/HYDROcodone 325 MG/10 MG TAB PO PRN ×3 (10:35→21:36)
--- NOTE | 2016-08-01 12:06 | HHI.GIFU ---
Subjective Remarks Resting in bed. Reports that she continues to have nausea, does not feel that she can drink the Golytely, but thinks she will be able to take the Magnesium Citrate. No abdominal pain. Objective Vitals I&O Vital Signs Date Time Temp Pulse Resp B/P Pulse Ox O2 Delivery O2 Flow Rate FiO2 08/01/16 08:05 99 Nasal Cannula 2.00 08/01/16 07:50 96.5 82 20 136/78 99 Manual Cuff/Auscultation 08/01/16 04:00 96.3 100 16 159/98 95 08/01/16 00:00 96.3 93 16 125/74 97 07/31/16 20:22 96 Nasal Cannula 2.00 07/31/16 20:00 97.0 94 18 105/73 95 07/31/16 16:00 96.9 89 20 109/68 98 07/31/16 12:00 97.2 94 20 121/78 98 I/O 07/31/16 07/31/16 07/31/16 08/01/16 08/01/16 08/01/16 07:00 15:00 23:00 07:00 15:00 23:00 Intake Total 560 ml 840 ml 300 ml 150 ml Output Total 400 ml 200 ml Balance 560 ml 840 ml -100 ml -50 ml Intake Oral 840 ml 300 ml 150 ml IV Total 560 ml Output Urine Total 400 ml 200 ml # Voids 2 # Bowel Movements 0 0 Imaging Last Impressions Chest CT 07/30/16 0000 Signed Impressions: Service Date/Time: Saturday, July 30, 2016 22:40 - CONCLUSION: 1. Emphysema with right upper lobe scarring and mild atypical, most likely inflammatory infiltrate in the lingula again noted. 2. No evidence of malignancy of the chest. 3. Tortuous thoracic aorta. 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 4. Vertebral body compression fractures have developed since the prior study, presumably osteoporotic in nature. These are in the lower thoracic and upper lumbar spine. Clearly see an underlying bone lesion.. Fredi Schneider MD Abdomen/Pelvis CT 07/30/16 0000 Signed Impressions: Service Date/Time: Saturday, July 30, 2016 22:40 - CONCLUSION: 1. Moderately severe bilateral hydronephrosis, possibly related to UPJ obstruction. Although I don't have the images, similar findings were described on the CT back in 2008. There is a 4 mm nonobstructing stone on the left. Left kidney is mildly atrophic. 2. No evidence of malignancy within the abdomen or pelvis. 3. Uterine fibroid. Fredi Schneider MD Physical Exam GEN: Cachetic HEENT: Normocephalic; atraumatic; no jaundice. CHEST: Expiratory wheezing CARDIAC: RRR. ABDOMEN: Soft, nondistended, nontender; no hepatosplenomegaly; bowel sounds are present in all four quadrants. EXTREMITIES: No clubbing, cyanosis, or edema. SKIN: Normal; no rash; no jaundice. 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 Assessment and Plan Plan ASSESSMENT: - Failure to thrive/wt loss/ persistent nausea. She lost a total of 19 lbs since October of last year, she is now 70 lbs. She reports early satiety on going for 2 months, loss of appetite, constant nausea but no vomiting. Last EGD/colonoscopy ----> than [address] (07/30/16) Moderately severe bilateral hydronephrosis, possibly related to UPJ obstruction. Although I don't have the images, similar findings were described on the CT back in 2008. There is a 4 mm nonobstructing stone on the left. Left kidney is mildly atrophic. No evidence of malignancy within the abdomen or pelvis. Plan is for egd/ colonoscopy. Pt states there is no way she can take the Golytely, but feels she could take the Magnesium citrate. - Nausea. LFTs normal, ct as above. PPI, Zofran - Severe COPD on o2 at home, anxiety, compression frxs Plan: - Plan for egd/colonoscopy in am - Obtain consents - Clear liquids - NPO after MN - PPI - Supportive care - Further recommendations to follow based on results of above - Patient seen and examined by Dr. Mckeon and myself and this note is written on his behalf. Aneta Valderrama Aug 01, 2016 12:06
[2016-08-01] MEDS ORDERED: PEG (High)/E-LYTE SOLN 4000 ML BTL PO ONE (16:15)
[2016-08-01] MEDS: AZITHROMYCIN INJ 500 MG in SODIUM CHLOR 0.9% 250 ML INJ 250 ML IV SCH (16:15)
--- NOTE | 2016-08-01 16:56 | PQ ---
Physician Query Response Document PATIENT: RODRÍGUEZ WHITE : 1955 ADMIT DATE: 07/30/2016 2:25 PM DISCH DATE: RESPONDING PROVIDER #: Rbraithw QUERY TEXT: Malnutrition Severity Malnutrition is documented in the Medical Record. Please specify the severity Such as: -- Mild ? first degree -- Moderate ? second degree -- Severe ? third degree -- Severe malnutrition with marasmus -- Other, please specify PLEASE CALL [facility] IN [facility] [id number] FOR ASSISTANCE- THANK YOU The patient's Clinical Indicators include: Problem List: (1) Failure to thrive in adult Status: Acute Plan: Pt admitted with severe weight loss. nausea. early satiety and poor appetite hx of multiple vertebral fractures in malnourished female. BMI=15.2 TOTAL PROTEIN=6.7 ON 07/30/16 ALBUMIN=3.3 ON 07/30/16 Query created by: Amauri Wong on 08/01/2016 1:47 PM RESPONSE TEXT: Pt has severe malnutrition. Electronically signed by: Garret Pool MD 08/01/2016 4:53 PM
[2016-08-01] MEDS ORDERED: MAGNESIUM CITRATE SOLN 300 ML BTL PO ONE ×2 (17:00→19:00)
[2016-08-02] VITALS (10 sets, daily range): BP systolic 113–160; BP diastolic 64–95; PULSE 88–111; RESP 17–20; TEMP 96.2–97.2; O2SAT 10–100
[2016-08-02] MEDS: ACETAMINOPHEN/HYDROcodone 325 MG/10 MG TAB PO PRN ×4 (04:07→20:58)
[2016-08-02] MEDS: methylPREDNISolone SOD SUCC 125 MG/2 ML VIAL IV PUSH SCH ×4 (04:07→20:59)
[2016-08-02] MEDS: RESP: ALBUTEROL 2.5 MG/IPRATROPIUM 0.5 MG NEB (SCH) NEB ×4 (07:52→19:09)
[2016-08-02] MEDS: CITALOPRAM HYDROBROMIDE 20 MG TAB PO SCH (09:00)
[2016-08-02] MEDS: PANTOPRAZOLE SOD 40 MG DELAYED RELEASE TAB PO SCH (09:00)
[2016-08-02] MEDS: amLODIPine BESYLATE 5 MG TAB PO SCH (09:00)
--- NOTE | 2016-08-02 09:01 | HHI.PR ---
Subjective Remarks still sob with exertion. Objective Vitals heart reg lung wheezing ethel abd s/nt ext no edema Vital Signs Date Time Temp Pulse Resp B/P Pulse Ox O2 Delivery O2 Flow Rate FiO2 08/02/16 08:00 96.2 88 20 154/95 100 08/02/16 07:54 98 Nasal Cannula 2.00 08/02/16 04:00 97.2 98 18 142/89 96 08/02/16 00:22 96.4 108 18 160/93 96 08/01/16 20:00 97.0 108 18 149/89 93 08/01/16 15:50 97.1 101 20 145/88 08/01/16 15:35 99 Nasal Cannula 2.00 08/01/16 11:58 98.2 83 20 117/79 99 08/01/16 08/01/16 08/02/16 15:00 23:00 07:00 Intake Total 962 ml 150 ml 0 ml Output Total 400 ml Balance 562 ml 150 ml 0 ml Intake Oral 962 ml 150 ml 0 ml Output Urine Total 400 ml # Voids 0 3 # Bowel Movements 0 0 3 Result Diagram: 07/30/16 1902 07/31/16 0617 A/P Problem List: (1) Failure to thrive in adult Status: Acute Plan: Pt admitted with severe weight loss. nausea. early satiety and poor appetite There has been concern by her pcp for occult malignancy. GI consulted for endoscopy. If neg could also consider ges. Pt going for endoscopy today supportive care CT a/p results noted. 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 (2) COPD (chronic obstructive pulmonary disease) Status: Acute Plan: acute copd flare increased nebs/solumedrol (3) Weight loss Status: Acute Plan: as noted above (4) Anxiety Status: Chronic Plan: continue rx. (5) HTN (hypertension) Status: Chronic Plan: continue rx. and prn meds (6) Chronic back pain Status: Chronic Plan: hx of multiple vertebral fractures in malnourished female. will provide pain meds. Check imaging. Problem Qualifiers (1) COPD (chronic obstructive pulmonary disease): (2) Chronic back pain: Garret Pool MD Aug 02, 2016 09:00
[2016-08-02] MEDS ORDERED: HYDROCORTISONE SOD SUCCINATE 100 MG VIAL IV ONE (09:24)
[2016-08-02] MEDS ORDERED: PROPOFOL 200 MG/20 ML AMP IV ONE (09:27)
--- NOTE | 2016-08-02 10:01 | GIPROC ---
[facility] [address] [facility]. [facility], [address] EGD PROCEDURE REPORT EXAM DATE: 08/02/2016 PATIENT NAME: Corina Dorsey MR #: [id number] BIRTHDATE: 1955 ATTENDING: Mignon Mcginnis MD ORDER #: [id number] WELLNESS DIRECTOR: Omi Jackson and Kaity Mills STATUS: bedside INDICATIONS: The patient is a 60 yr old female here for an EGD due to epigastric abdominal pain and nausea PROCEDURE PERFORMED: EGD w/ biopsy MEDICATIONS: None and Per Anesthesia. TOPICAL ANESTHETIC: CONSENT: The patient understands the risks and benefits of the procedure and understands that these risks include, but are not limited to: sedation, allergic reaction, infection, perforation and/or bleeding. Alternative means of evaluation and treatment include, among others: physical exam, x-rays, and/or surgical intervention. The patient elects to proceed with this endoscopic procedure. medical equipment was checked for proper function. Hand hygiene and appropriate measures for infection prevention was taken. After the risks, benefits and alternatives of the procedure were thoroughly explained, Informed consent was verified, confirmed and timeout was successfully executed by the treatment team. The patient was anesthetized with topical anesthesia and the EC-3490Li (Pedi C) endoscope was introduced through the mouth and advanced to the second portion of the duodenum. Retroflexed views revealed a hiatal hernia The gastroscope was then slowly withdrawn and removed. ESOPHAGUS: There was LA Class A esophagitis noted. A biopsy was performed using cold forceps. Sample sent for histology. STOMACH: There was erythematous moderate gastritis in the gastric antrum. A biopsy was performed using cold forceps. Sample sent for histology. ADVERSE EVENTS: There were no complications. IMPRESSIONS: 1. There was LA Class A esophagitis noted 2. There was erythematous gastritis in the gastric antrum; biopsy was performed 3. Retroflexed views revealed a hiatal hernia RECOMMENDATIONS: 1. Await biopsy results. Biopsy results will not be ready for 7-10 days. If you don't hear from us in two weeks, call our office for biopsy results. 2. Anti-reflux regimen 3. Continue PPI 4. Avoid NSAIDS PATIENT CONDITION: stable DISPOSITION: Inpatient REPEAT EXAM: Return 3 years EGD Mignon Mcginnis MD eSigned: Mignon Mcginnis MD 08/02/2016 10:01 AM cc: CPT CODES: 68625 Upper gastrointestinal endoscopy including esophagus, stomach, and either the duodenum and/or jejunum as appropriate; with biopsy, single or multiple ICD CODES: K44.9 Diaphragmatic hernia without obstruction or gangrene K20.9 Esophagitis,unspecified R10.13 Epigastric pain R11.0 Nausea The ICD and CPT codes recommended by this software are interpretations from the data that the clinical staff has captured with the software. The verification of the translation of this report to the ICD and CPT codes and modifiers is the sole responsibility of the health care institution and practicing physician where this report was generated. [employer] will not be held responsible for the validity of the ICD and CPT codes included on this report. AMA assumes no liability for data contained or not contained herein. CPT is a registered trademark of the [employer]. PATIENT NAME: Corina Dorsey MR#: [id number]
--- NOTE | 2016-08-02 10:04 | GIPROC ---
[facility] [address] [facility]. [facility] [place], [address] COLONOSCOPY PROCEDURE REPORT EXAM DATE: 08/02/2016 PATIENT NAME: Corina Dorsey MR #: [id number] BIRTHDATE: 1955 ENDOSCOPIST: Mignon Mcginnis MD ORDER #: [id number] INVESTMENT DIRECTOR: Omi Jackson and Kaity Mills STATUS: bedside INDICATIONS: The patient is a 60 yr old female here for a colonoscopy due to weight loss PROCEDURE PERFORMED: Colonoscopy with biopsy MEDICATIONS: None and Per Anesthesia. PREP QUALITY: The Dilworth Bowel Prep Score was Right colon 2, Mid colon 2, and Left colon 3. Total = 7. PREP TYPE:Magnesium Citrate ESTIMATED BLOOD LOSS: None CONSENT: The patient understands the risks and benefits of the procedure and understands that these risks include, but are not limited to: sedation, allergic reaction, infection, perforation and/or bleeding. Alternative means of evaluation and treatment include, among others: physical exam, x-rays, and/or surgical intervention. The patient elects to proceed with this endoscopic procedure. medical equipment was checked for proper function. Hand hygiene and appropriate measures for infection prevention was taken. After the risks, benefits and alternatives of the procedure were thoroughly explained, Informed consent was verified, confirmed and timeout was successfully executed by the treatment team. A digital exam revealed external hemorrhoids The Pentax EC-[id number] endoscope was introduced through the anus and advanced to the cecum, which was identified by both the appendix and ileocecal valve. The instrument was then slowly withdrawn as the colon was fully examined. COLON FINDINGS: Mild diverticulosis was noted in the sigmoid colon. Two polypoid shaped sessile polyps ranging between 3-5mm in size were found in the sigmoid colon. Multiple biopsies were performed using cold forceps. Retroflexed views revealed internal hemorrhoids and Retroflexed views revealed medium internal hemorrhoids The scope was then completely withdrawn from the patient and the procedure terminated. PROCEDURE WITHDRAWAL TIME:7minutes ADVERSE EVENTS: There were no complications. IMPRESSIONS: 1. Mild diverticulosis was noted in the sigmoid colon 2. Two sessile polyps ranging between 3-5mm in size were found in the sigmoid colon; multiple biopsies were performed using cold forceps 3. Retroflexed views revealed internal hemorrhoids 4. Retroflexed views revealed medium internal hemorrhoids 5. Revealed external hemorrhoids RECOMMENDATIONS: 1. Await biopsy results. Biopsy results will not be ready for 7-10 days. If you don't hear from us in two weeks, call our office for results. 2. Continue surveillance 3. Yearly hemoccult 4. High fiber diet 5. Follow-up: GI Clinic 2 week(s) RECALL: Return 5 years Colonoscopy Mignon Mcginnis MD eSigned: Mignon Mcginnis MD 08/02/2016 10:03 AM cc: CPT CODES: 74817 Colonoscopy, flexible, proximal to splenic flexure; with biopsy, single or multiple ICD CODES: K64.8 Other hemorrhoids D12.5 Benign neoplasm of sigmoid colon R63.4 Abnormal weight loss K64.4 Residual hemorrhoidal skin tags The ICD and CPT codes recommended by this software are interpretations from the data that the clinical staff has captured with the software. The verification of the translation of this report to the ICD and CPT codes and modifiers is the sole responsibility of the health care institution and practicing physician where this report was generated. [employer] will not be held responsible for the validity of the ICD and CPT codes included on this report. AMA assumes no liability for data contained or not contained herein. CPT is a registered trademark of the [employer]. PATIENT NAME: Corina Dorsey MR#: [id number]
[2016-08-02] MEDS: CETIRIZINE HCL 10 MG TAB PO SCH (10:36)
[2016-08-02] MEDS: AZITHROMYCIN INJ 500 MG in SODIUM CHLOR 0.9% 250 ML INJ 250 ML IV SCH (16:53)
[2016-08-02] MEDS: DIAZEPAM 5 MG TAB PO PRN (20:58)
[2016-08-03] VITALS (7 sets, daily range): BP systolic 105–152; BP diastolic 65–88; PULSE 92–108; RESP 16–20; TEMP 96.6–98.9; O2SAT 92–100
[2016-08-03] MEDS: ACETAMINOPHEN/HYDROcodone 325 MG/10 MG TAB PO PRN ×2 (04:15→08:19)
[2016-08-03] MEDS: methylPREDNISolone SOD SUCC 125 MG/2 ML VIAL IV PUSH SCH ×4 (04:15→20:24)
[2016-08-03] MEDS: RESP: ALBUTEROL 2.5 MG/IPRATROPIUM 0.5 MG NEB (SCH) NEB ×4 (07:43→19:50)
[2016-08-03] MEDS: amLODIPine BESYLATE 5 MG TAB PO SCH (08:19)
[2016-08-03] MEDS: CETIRIZINE HCL 10 MG TAB PO SCH (08:19)
[2016-08-03] MEDS: DIAZEPAM 5 MG TAB PO PRN ×2 (08:19→20:23)
[2016-08-03] MEDS: CITALOPRAM HYDROBROMIDE 20 MG TAB PO SCH (08:19)
[2016-08-03] MEDS: PANTOPRAZOLE SOD 40 MG DELAYED RELEASE TAB PO SCH (08:19)
--- NOTE | 2016-08-03 08:34 | HHI.PR ---
Subjective Remarks c/o pain from vertebral fx's Objective Vitals heart reg lung wheezing abd s/nt ext no edema cachectic Vital Signs Date Time Temp Pulse Resp B/P Pulse Ox O2 Delivery O2 Flow Rate FiO2 08/03/16 07:46 92 Nasal Cannula 2.00 08/03/16 05:24 16 08/03/16 04:00 96.9 92 16 121/69 96 08/02/16 23:45 96.5 98 17 113/73 98 08/02/16 20:00 96.8 111 19 128/73 97 08/02/16 19:10 97 Nasal Cannula 2.00 08/02/16 16:00 96.6 95 20 119/64 97 08/02/16 12:00 96.7 97 20 129/78 98 08/02/16 10:02 90 16 118/69 99 08/02/16 09:57 90 16 115/66 100 08/02/16 09:52 97.5 90 16 113/65 100 08/02/16 08:45 88 20 154/95 10 08/02/16 08/02/16 08/03/16 15:00 23:00 07:00 Intake Total 760 ml 1240 ml 240 ml Balance 760 ml 1240 ml 240 ml Intake Oral 360 ml 240 ml 240 ml IV Total 400 ml 1000 ml # Voids 1 # Bowel Movements 1 Result Diagram: 07/30/16 1902 07/31/16 0617 A/P Problem List: (1) Failure to thrive in adult Status: Acute Plan: Pt admitted with severe weight loss. nausea. early satiety and poor appetite There has been concern by her pcp for occult malignancy. GI consulted for endoscopy. polyps/gastritis/esophagitis c/o pain from T and L spine fx's CT a/p results noted. 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 d/c norco and morphine. GES Friday ppi (2) COPD (chronic obstructive pulmonary disease) Status: Acute Plan: acute copd flare increased nebs/solumedrol add budesonide. (3) Weight loss Status: Acute Plan: as noted above (4) Anxiety Status: Chronic Plan: continue rx. (5) HTN (hypertension) Status: Chronic Plan: continue rx. and prn meds (6) Chronic back pain Status: Chronic Plan: hx of multiple vertebral fractures in malnourished female. will provide pain meds. order tlso brace. Problem Qualifiers (1) COPD (chronic obstructive pulmonary disease): (2) Chronic back pain: Garret Pool MD Aug 03, 2016 08:34
[2016-08-03] MEDS ORDERED: RESP: BUDESONIDE 0.5 MG/2 ML NEB NEB ONE (09:00)
[2016-08-03] MEDS ORDERED: KETOROLAC TROMETHAMINE 30 MG/ML (IVP) VIAL IV PUSH ONE (09:00)
[2016-08-03] MEDS: CALCIUM/VITAMIN D 250 MG/125 U TAB PO SCH ×2 (10:03→20:21)
[2016-08-03] MEDS: traMADol HCL 50 MG TAB PO PRN (13:21)
[2016-08-03] MEDS: AZITHROMYCIN INJ 500 MG in SODIUM CHLOR 0.9% 250 ML INJ 250 ML IV SCH (18:14)
[2016-08-03] MEDS: ACETAMINOPHEN/HYDROcodone 325 MG/7.5 MG TAB PO PRN (18:47)
[2016-08-03] MEDS: RESP: BUDESONIDE 0.5 MG/2 ML NEB NEB SCH (19:50)
[2016-08-04] VITALS (8 sets, daily range): BP systolic 116–158; BP diastolic 75–88; PULSE 89–109; RESP 16–20; TEMP 97.1–98.2; O2SAT 96–100
[2016-08-04] MEDS: methylPREDNISolone SOD SUCC 125 MG/2 ML VIAL IV PUSH SCH ×4 (03:58→20:18)
[2016-08-04] MEDS: traMADol HCL 50 MG TAB PO PRN ×4 (04:00→20:19)
[2016-08-04] MEDS: RESP: ALBUTEROL 2.5 MG/IPRATROPIUM 0.5 MG NEB (SCH) NEB ×4 (07:17→19:12)
[2016-08-04] MEDS: RESP: BUDESONIDE 0.5 MG/2 ML NEB NEB SCH (07:17)
[2016-08-04] MEDS: CALCIUM/VITAMIN D 250 MG/125 U TAB PO SCH ×2 (09:30→20:19)
[2016-08-04] MEDS: PANTOPRAZOLE SOD 40 MG DELAYED RELEASE TAB PO SCH (09:31)
[2016-08-04] MEDS: CITALOPRAM HYDROBROMIDE 20 MG TAB PO SCH (09:31)
[2016-08-04] MEDS: amLODIPine BESYLATE 5 MG TAB PO SCH (09:31)
[2016-08-04] MEDS: CETIRIZINE HCL 10 MG TAB PO SCH (09:31)
--- NOTE | 2016-08-04 10:04 | HHI.PR ---
Subjective Remarks c/o bandlike pain from back around upper abdomen. seems worse with mvmt or cough..But also a component of pain with meals. breathing still difficult with ambulation. Objective Vitals cachectic heart reg lung ethel exp wheezing abd s/nt ext no edema Vital Signs Date Time Temp Pulse Resp B/P Pulse Ox O2 Delivery O2 Flow Rate FiO2 08/04/16 08:00 97.6 99 16 146/87 97 08/04/16 07:18 98 Nasal Cannula 2.00 08/04/16 04:30 98.2 89 20 116/77 100 08/04/16 00:07 97.4 103 20 125/75 98 08/03/16 20:43 97.8 107 20 145/82 100 08/03/16 19:50 99 Nasal Cannula 3.00 08/03/16 16:00 98.9 108 18 140/74 98 08/03/16 12:47 96.6 94 18 105/65 98 08/03/16 08/03/16 08/04/16 15:00 23:00 07:00 Intake Total 480 ml 360 ml 120 ml Output Total 500 ml 300 ml 0 ml Balance -20 ml 60 ml 120 ml Intake Oral 480 ml 360 ml 120 ml Output Urine Total 500 ml 300 ml 0 ml # Bowel Movements 0 Result Diagram: 07/31/16 0617 A/P Problem List: (1) Failure to thrive in adult Status: Acute Plan: Pt admitted with severe weight loss. nausea. early satiety and poor appetite There has been concern by her pcp for occult malignancy. GI consulted for endoscopy. polyps/gastritis/esophagitis c/o pain from T and L spine fx's CT a/p results noted. 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 prn pain control. minimize narcotic prior to ges GES tomorrow. ppi (2) COPD (chronic obstructive pulmonary disease) Status: Acute Plan: acute copd flare increased nebs/solumedrol added budesonide. (3) Weight loss Status: Acute Plan: as noted above (4) Anxiety Status: Chronic Plan: continue rx. (5) HTN (hypertension) Status: Chronic Plan: continue rx. and prn meds (6) Chronic back pain Status: Chronic Plan: hx of multiple vertebral fractures in malnourished female. will provide pain meds. order tlso brace. Problem Qualifiers (1) COPD (chronic obstructive pulmonary disease): (2) Chronic back pain: Garret Pool MD Aug 04, 2016 10:04
[2016-08-04] MEDS ORDERED: CYCLOBENZAPRINE HCL 10 MG TAB PO PRN (10:15)
[2016-08-04] MEDS: AZITHROMYCIN INJ 500 MG in SODIUM CHLOR 0.9% 250 ML INJ 250 ML IV SCH (16:55)
[2016-08-04] MEDS: DIAZEPAM 5 MG TAB PO PRN (20:19)
[2016-08-05] VITALS (7 sets, daily range): BP systolic 106–167; BP diastolic 60–89; PULSE 88–102; RESP 16–18; TEMP 97.1–98; O2SAT 94–100
[2016-08-05] MEDS: methylPREDNISolone SOD SUCC 125 MG/2 ML VIAL IV PUSH SCH ×4 (03:40→20:41)
[2016-08-05] MEDS: traMADol HCL 50 MG TAB PO PRN ×2 (03:44→09:45)
[2016-08-05] MEDS: RESP: BUDESONIDE 0.5 MG/2 ML NEB NEB SCH ×2 (08:01→21:32)
[2016-08-05] MEDS: RESP: ALBUTEROL 2.5 MG/IPRATROPIUM 0.5 MG NEB (SCH) NEB ×2 (08:01→10:10)
[2016-08-05] MEDS: CITALOPRAM HYDROBROMIDE 20 MG TAB PO SCH (09:39)
[2016-08-05] MEDS: PANTOPRAZOLE SOD 40 MG DELAYED RELEASE TAB PO SCH (09:39)
[2016-08-05] MEDS: amLODIPine BESYLATE 5 MG TAB PO SCH (09:39)
[2016-08-05] MEDS: CALCIUM/VITAMIN D 250 MG/125 U TAB PO SCH ×2 (09:39→20:42)
[2016-08-05] MEDS: CETIRIZINE HCL 10 MG TAB PO SCH (09:39)
--- NOTE | 2016-08-05 10:04 | HHI.PR ---
Subjective Remarks Pt c/o increased SOB from admission Objective Vitals Vital Signs Date Time Temp Pulse Resp B/P Pulse Ox O2 Delivery O2 Flow Rate FiO2 08/05/16 08:00 98.0 102 16 146/89 94 08/05/16 04:00 97.4 88 16 161/89 99 08/05/16 00:00 97.1 94 16 146/82 99 08/04/16 20:00 97.5 106 19 158/86 97 08/04/16 16:21 98 Nasal Cannula 2.00 08/04/16 16:00 97.4 109 16 154/83 98 08/04/16 12:00 97.1 98 16 145/88 96 08/04/16 08/04/16 08/05/16 15:00 23:00 07:00 Intake Total 480 ml 240 ml Output Total 500 ml 600 ml 600 ml Balance -20 ml -360 ml -600 ml Intake Oral 480 ml 240 ml Output Urine Total 500 ml 600 ml 600 ml Imaging Last Impressions Chest CT 07/30/16 0000 Signed Impressions: Service Date/Time: Saturday, July 30, 2016 22:40 - CONCLUSION: 1. Emphysema with right upper lobe scarring and mild atypical, most likely inflammatory infiltrate in the lingula again noted. 2. No evidence of malignancy of the chest. 3. Tortuous thoracic aorta. 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 4. Vertebral body compression fractures have developed since the prior study, presumably osteoporotic in nature. These are in the lower thoracic and upper lumbar spine. Clearly see an underlying bone lesion.. Fredi Schneider MD Abdomen/Pelvis CT 07/30/16 0000 Signed Impressions: Service Date/Time: Saturday, July 30, 2016 22:40 - CONCLUSION: 1. Moderately severe bilateral hydronephrosis, possibly related to UPJ obstruction. Although I don't have the images, similar findings were described on the CT back in 2008. There is a 4 mm nonobstructing stone on the left. Left kidney is mildly atrophic. 2. No evidence of malignancy within the abdomen or pelvis. 3. Uterine fibroid. Fredi Schneider MD Objective Remarks GENERAL: This is a well-nourished, well-developed patient, in no apparent distress. CARDIOVASCULAR: Regular rate and rhythm without murmurs, gallops, or rubs. RESPIRATORY: b/l wheezing and poor air movement GASTROINTESTINAL: Abdomen soft, non-tender, nondistended. Normal active bowel sounds MUSCULOSKELETAL: Extremities without clubbing, cyanosis, or edema. NEURO: Alert & Oriented x4 to person, place, time, situation. Moves all ext x4 A/P Problem List: (1) Failure to thrive in adult Status: Acute Plan: - Pt admitted with severe weight loss, nausea, early satiety and poor appetite - There has been concern from her PCP for occult malignancy. - CT Abd/pelvis (07/30/16) --> Moderately severe bilateral hydronephrosis, possibly related to UPJ obstruction. Although I don't have the images, similar findings were described on the CT back in 2008. There is a 4 mm nonobstructing stone on the left. Left kidney is mildly atrophic. No evidence of malignancy within the abdomen or pelvis. - Ct Thorax (07/30/16) --> Emphysema with right upper lobe scarring and mild atypical, most likely inflammatory infiltrate in the lingula again noted. No evidence of malignancy of the chest. - GI was consulted - Pt underwent evaluation with EGD/colonoscopy on 08/02/16 --> Esophagitis, gastritis, hiatal hernia, diverticulosis, 2 colonic polyps and hemorrhoids. - Pt c/o pain from T and L spine fx's. CT Thorax noted vertebral body compression fractures have developed since the prior study, presumably osteoporotic in nature. These are in the lower thoracic and upper lumbar spine. - Pain control PRN. - Try to minimize narcotic use - Pt to have GES today. - Cont. PPI (2) COPD (chronic obstructive pulmonary disease) Status: Acute Plan: - Pt with noted acute COPD flare - Pt is chronically on 2-3L of supplemental O2 at home. - Pt is on Solu-Medrol 60mg Q6H - Duonebs Q4H [place] - Pulmicort Q12H - Pt is on Azithromycin IV as well. (3) Weight loss Status: Acute Plan: - As noted above (4) Anxiety Status: Chronic Plan: - Continue rx. (5) HTN (hypertension) Status: Chronic Plan: - Pt is on Norvasc 5mg daily - Clonidine PRN (6) Chronic back pain Status: Chronic Plan: - Pt with hx of multiple vertebral fractures in malnourished female. - Pain meds PRN - TLSO brace. Assessment and Plan GES (08/05/16) --> delayed gastric emptying with some response to reglan - pt receiving ultram, no lortab for several days. Pt with chronic vertebral compression fractures & chronic LBP - trial of IV reglan - suspect COPD is also contributing to pt's weight loss and FTT Problem Qualifiers (1) COPD (chronic obstructive pulmonary disease): (2) Chronic back pain: Caryl Newton Aug 05, 2016 10:04 Major Givens DO Aug 05, 2016 18:36
[2016-08-05] MEDS ORDERED: METOCLOPRAMIDE HCL 10 MG/2 ML VIAL ONE (11:58)
--- NOTE | 2016-08-05 12:54 | RADRPT ---
EXAM DATE/TIME: 08/05/2016 10:16 [facility] COMPARISON: No previous studies available for comparison. INDICATIONS : Abdominal pain and weakness. DOSE: 1.0 mCi Tc99m Sulfur Colloid Labeled Whole egg PO MEDICATONS: 1.) 5 mg Reglan IV at 90 minutes IMAGIN hrs MEDICAL HISTORY : Hypertension. Chronic obstructive pulmonary disease. Carcinoma, breast. SURGICAL HISTORY : Cholecystectomy. Lumpectomy. ENCOUNTER: Initial ACUITY: 1 day PAIN SCALE: 2/10 LOCATION: Abdomen. TECHNIQUE: Following the oral ingestion of radiotracer-labeled meal, dynamic sequential images in the [place] projec tion were acquired with simultaneous computer acquisition. The data set was decay-corrected. FINDINGS: LAG PHASE: A significant light phase is not seen. EMPTYING: There is some initial gastric emptying of approximately 15% of the stomach contents over the first 10 minutes and then plateauing of the emptying over the next hour. At approximately 65 minutes, gastric emptying does accelerate. The gastric half-emptying time is 108 minutes. (Normal for this lab is 45- 90 minutes.) INTERVENTION: There is some acceleration of gastric emptying following intravenous Reglan administration. CONCLUSION: Delayed gastric emptying. Fredi Lewis MD on August 05, 2016 at 12:49 Board Certified Radiologist. This report was verified electronically.
[2016-08-05] MEDS: ACETAMINOPHEN/HYDROcodone 325 MG/7.5 MG TAB PO PRN ×2 (15:24→20:41)
[2016-08-05] MEDS: RESP: ALBUTEROL 1.25 MG/3 ML NEB (PRN) NEB ×2 (15:27→21:32)
[2016-08-05] MEDS: AZITHROMYCIN INJ 500 MG in SODIUM CHLOR 0.9% 250 ML INJ 250 ML IV SCH (16:58)
[2016-08-05] MEDS: METOCLOPRAMIDE HCL 10 MG/2 ML VIAL IV PUSH SCH (20:41)
[2016-08-05] MEDS: DIAZEPAM 5 MG TAB PO PRN (20:42)
[2016-08-06] VITALS (8 sets, daily range): BP systolic 129–180; BP diastolic 68–93; PULSE 79–92; RESP 16–20; TEMP 96.7–98.3; O2SAT 96–100
[2016-08-06] MEDS: ACETAMINOPHEN/HYDROcodone 325 MG/7.5 MG TAB PO PRN ×4 (05:28→21:16)
[2016-08-06] MEDS: methylPREDNISolone SOD SUCC 125 MG/2 ML VIAL IV PUSH SCH ×4 (05:28→21:16)
[2016-08-06] MEDS: METOCLOPRAMIDE HCL 10 MG/2 ML VIAL IV PUSH SCH ×3 (05:28→21:16)
[2016-08-06] MEDS: CALCIUM/VITAMIN D 250 MG/125 U TAB PO SCH ×2 (09:51→21:16)
[2016-08-06] MEDS: CITALOPRAM HYDROBROMIDE 20 MG TAB PO SCH (09:51)
[2016-08-06] MEDS: PANTOPRAZOLE SOD 40 MG DELAYED RELEASE TAB PO SCH (09:51)
[2016-08-06] MEDS: amLODIPine BESYLATE 5 MG TAB PO SCH (09:51)
[2016-08-06] MEDS: CETIRIZINE HCL 10 MG TAB PO SCH (09:51)
[2016-08-06] MEDS ORDERED: RESP: ALBUTEROL 2.5 MG/IPRATROPIUM 0.5 MG NEB (PRN) NEB (10:00)
[2016-08-06] MEDS ORDERED: RESP: ALBUTEROL 2.5 MG/IPRATROPIUM 0.5 MG NEB (PRN) ONE (10:10)
[2016-08-06] MEDS: RESP: BUDESONIDE 0.5 MG/2 ML NEB NEB SCH ×2 (10:11→20:15)
--- NOTE | 2016-08-06 10:11 | HHI.PR ---
Subjective Remarks Pt c/o continued SOB. Pt NOT sure if any improvement as of yet with reglan. Pt still c/o sensation of early satiety Objective Vitals Vital Signs Date Time Temp Pulse Resp B/P Pulse Ox O2 Delivery O2 Flow Rate FiO2 08/06/16 09:50 98.3 90 20 180/91 99 08/06/16 05:26 97.5 84 18 169/93 97 08/06/16 00:00 96.7 79 16 129/78 100 08/05/16 21:35 98 Nasal Cannula 3.00 08/05/16 20:35 97.7 95 18 167/83 96 08/05/16 16:00 97.5 92 18 140/88 96 08/05/16 08/05/16 08/06/16 15:00 23:00 07:00 Intake Total 480 ml 480 ml 240 ml Output Total 1000 ml 800 ml 400 ml Balance -520 ml -320 ml -160 ml Intake Oral 480 ml 480 ml 240 ml Output Urine Total 1000 ml 800 ml 400 ml Imaging Last Impressions Chest CT 07/30/16 0000 Signed Impressions: Service Date/Time: Saturday, July 30, 2016 22:40 - CONCLUSION: 1. Emphysema with right upper lobe scarring and mild atypical, most likely inflammatory infiltrate in the lingula again noted. 2. No evidence of malignancy of the chest. 3. Tortuous thoracic aorta. 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 4. Vertebral body compression fractures have developed since the prior study, presumably osteoporotic in nature. These are in the lower thoracic and upper lumbar spine. Clearly see an underlying bone lesion.. Fredi Schneider MD Abdomen/Pelvis CT 07/30/16 0000 Signed Impressions: Service Date/Time: Saturday, July 30, 2016 22:40 - CONCLUSION: 1. Moderately severe bilateral hydronephrosis, possibly related to UPJ obstruction. Although I don't have the images, similar findings were described on the CT back in 2008. There is a 4 mm nonobstructing stone on the left. Left kidney is mildly atrophic. 2. No evidence of malignancy within the abdomen or pelvis. 3. Uterine fibroid. Fredi Schneider MD Objective Remarks GENERAL: This is a well-nourished, well-developed patient, in no apparent distress. CARDIOVASCULAR: Regular rate and rhythm without murmurs, gallops, or rubs. RESPIRATORY: b/l wheezing and poor air movement GASTROINTESTINAL: Abdomen soft, non-tender, nondistended. Normal active bowel sounds MUSCULOSKELETAL: Extremities without clubbing, cyanosis, or edema. NEURO: Alert & Oriented x4 to person, place, time, situation. Moves all ext x4 A/P Problem List: (1) Failure to thrive in adult Status: Acute Plan: - Comgmt with GI - Pt admitted with severe weight loss, nausea, early satiety and poor appetite - There has been concern from her PCP for occult malignancy. - CT Abd/pelvis (07/30/16) --> Moderately severe bilateral hydronephrosis, possibly related to UPJ obstruction. Although I don't have the images, similar findings were described on the CT back in 2008. There is a 4 mm nonobstructing stone on the left. Left kidney is mildly atrophic. No evidence of malignancy within the abdomen or pelvis. - Ct Thorax (07/30/16) --> Emphysema with right upper lobe scarring and mild atypical, most likely inflammatory infiltrate in the lingula again noted. No evidence of malignancy of the chest. - Pt underwent evaluation with EGD/colonoscopy on 08/02/16 --> Esophagitis, gastritis, hiatal hernia, diverticulosis, 2 colonic polyps and hemorrhoids. - Pt c/o pain from T and L spine fx's. CT Thorax noted vertebral body compression fractures have developed since the prior study, presumably osteoporotic in nature. These are in the lower thoracic and upper lumbar spine. - Pain control PRN. - Try to minimize narcotic use - GES (08/05/16) --> delayed gastric emptying, some response with reglan - trial of IV reglan - Cont. PPI (2) COPD (chronic obstructive pulmonary disease) Status: Acute Plan: - Pt with noted acute COPD flare - Pt is chronically on 2-3L of supplemental O2 at home. - Pt is on Solu-Medrol 60mg Q6H - Duonebs q4h and q2h prn - Pulmicort Q12H - Azithromycin IV - obtain repeat CXR (3) Weight loss Status: Acute Plan: - As noted above (4) Anxiety Status: Chronic Plan: - Continue rx. (5) HTN (hypertension) Status: Chronic Plan: - Pt is on Norvasc 5mg daily, change to procardia xl - Clonidine PRN - some of the elevation may be d/t SOB and discomfort (6) Chronic back pain Status: Chronic Plan: - Pt with hx of multiple vertebral fractures in malnourished female. - Pain meds PRN - TLSO brace. Problem Qualifiers (1) COPD (chronic obstructive pulmonary disease): (2) Chronic back pain: Major Givens DO Aug 06, 2016 10:11
--- NOTE | 2016-08-06 12:32 | RADRPT ---
EXAM DATE/TIME: 08/06/2016 11:57 This report includes an Addendum and supersedes previous reports for this exam. [facility] COMPARISON: CT THORAX W CONTRAST, July 30, 2016, 22:40. CHEST PA & LAT, August 11, 2014, 16:18. INDICATIONS : Short of breath MEDICAL HISTORY : Chronic obstructive pulmonary disease. Carcinoma, breast. Renal calculi. cardiovascular disease SURGICAL HISTORY : Cholecystectomy. lumpectomy ENCOUNTER: Subsequent ACUITY: 3 weeks PAIN SCORE: 0/10 LOCATION: Bilateral chest FINDINGS: The heart size is normal. The lungs are hyperinflated. There continues to be a small 0.7 cm mass in t he right upper lung. There is a mild right pleural effusion. CONCLUSION: Hyperinflated lungs with emphysematous change and a mild right effusion. There is a small right lung mass. Fredi Lewis MD on August 06, 2016 at 12:28 Board Certified Radiologist. This report was verified electronically. ADDENDUM: COMPARISON: CT ABDOMEN & PELVIS W CONTRAST, July 30, 2016, 22:40. CT THORAX W CONTRAST, Septemb er 2015, 14:04. I have been asked to review this case. The focal density in the right upper lung is identified on the [address]. There appears to be an irregular area of density in this region likely rela adryan to scarring. An irregular mass cannot be excluded. Significant change between the 2 scans is not seen. Continued followup would be recommended with a followup noncontrast CT examination in 3-6 month s. Fredi Lewis MD on August 07, 2016 at 9:41 Board Certified Radiologist. This report was verified electronically.
[2016-08-06] MEDS: RESP: ALBUTEROL 2.5 MG/IPRATROPIUM 0.5 MG NEB (SCH) NEB ×3 (13:11→20:15)
[2016-08-06] MEDS: NIFEdipine 30 MG SUSTAINED RELEASE TAB PO SCH (13:12)
[2016-08-06] MEDS: AZITHROMYCIN INJ 500 MG in SODIUM CHLOR 0.9% 250 ML INJ 250 ML IV SCH (16:40)
[2016-08-06] MEDS: DIAZEPAM 5 MG TAB PO PRN (21:18)
[2016-08-07] VITALS (8 sets, daily range): BP systolic 133–168; BP diastolic 71–89; PULSE 85–113; RESP 17–19; TEMP 96.9–98; O2SAT 95–99
[2016-08-07] MEDS: RESP: ALBUTEROL 2.5 MG/IPRATROPIUM 0.5 MG NEB (SCH) NEB ×5 (00:18→19:24)
[2016-08-07] MEDS: methylPREDNISolone SOD SUCC 125 MG/2 ML VIAL IV PUSH SCH ×4 (04:07→22:29)
[2016-08-07] MEDS: METOCLOPRAMIDE HCL 10 MG/2 ML VIAL IV PUSH SCH ×3 (06:03→22:29)
[2016-08-07] MEDS: ACETAMINOPHEN/HYDROcodone 325 MG/7.5 MG TAB PO PRN ×4 (06:10→22:33)
[2016-08-07] MEDS: CETIRIZINE HCL 10 MG TAB PO SCH (08:15)
[2016-08-07] MEDS: PANTOPRAZOLE SOD 40 MG DELAYED RELEASE TAB PO SCH (08:16)
[2016-08-07] MEDS: NIFEdipine 30 MG SUSTAINED RELEASE TAB PO SCH (08:16)
[2016-08-07] MEDS: CALCIUM/VITAMIN D 250 MG/125 U TAB PO SCH ×2 (08:16→22:29)
[2016-08-07] MEDS: CITALOPRAM HYDROBROMIDE 20 MG TAB PO SCH (08:20)
[2016-08-07] MEDS: RESP: BUDESONIDE 0.5 MG/2 ML NEB NEB SCH ×2 (09:23→19:24)
[2016-08-07] MEDS ORDERED: BISACODYL 10 MG SUPP PR PRN (09:30)
[2016-08-07] MEDS ORDERED: MAGNESIUM HYDROXIDE SUSP 30 ML CUP PO PRN (09:30)
--- NOTE | 2016-08-07 09:36 | HHI.PR ---
Subjective Remarks some improvement in SOB Pt able to tolerate apple sauce this AM. Pt c/o pills getting stuck when she swallows. Objective Vitals Vital Signs Date Time Temp Pulse Resp B/P Pulse Ox O2 Delivery O2 Flow Rate FiO2 08/07/16 08:00 97.7 85 19 145/85 98 08/07/16 04:13 97.1 96 18 147/89 97 08/07/16 00:00 97.5 98 18 149/81 98 08/06/16 20:17 98 Nasal Cannula 2.00 08/06/16 20:00 96.8 92 17 139/74 99 08/06/16 16:00 97.3 91 18 161/68 96 08/06/16 12:00 98.0 84 20 160/86 99 08/06/16 10:10 99 Nasal Cannula 3.00 08/06/16 09:50 98.3 90 20 180/91 99 08/06/16 08/06/16 08/07/16 15:00 23:00 07:00 Intake Total 840 ml Output Total 400 ml 100 ml 750 ml Balance 440 ml -100 ml -750 ml Intake Oral 840 ml Output Urine Total 400 ml 100 ml 750 ml Imaging Last Impressions Chest X-Ray 08/06/16 1100 Signed Impressions: Service Date/Time: Saturday, August 06, 2016 11:57 - CONCLUSION: Hyperinflated lungs with emphysematous change and a mild right effusion. There is a small right lung mass. Fredi Lewis MD Gastric Emptying Nuclear Medicine 08/05/16 0000 Signed Impressions: Service Date/Time: Friday, August 05, 2016 10:16 - CONCLUSION: Delayed gastric emptying. Fredi Lewis MD Chest CT 07/30/16 0000 Signed Impressions: Service Date/Time: Saturday, July 30, 2016 22:40 - CONCLUSION: 1. Emphysema with right upper lobe scarring and mild atypical, most likely inflammatory infiltrate in the lingula again noted. 2. No evidence of malignancy of the chest. 3. Tortuous thoracic aorta. 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 4. Vertebral body compression fractures have developed since the prior study, presumably osteoporotic in nature. These are in the lower thoracic and upper lumbar spine. Clearly see an underlying bone lesion.. Fredi Schneider MD Abdomen/Pelvis CT 07/30/16 0000 Signed Impressions: Service Date/Time: Saturday, July 30, 2016 22:40 - CONCLUSION: 1. Moderately severe bilateral hydronephrosis, possibly related to UPJ obstruction. Although I don't have the images, similar findings were described on the CT back in 2008. There is a 4 mm nonobstructing stone on the left. Left kidney is mildly atrophic. 2. No evidence of malignancy within the abdomen or pelvis. 3. Uterine fibroid. Fredi Schneider MD Objective Remarks GENERAL: This is a well-nourished, well-developed patient, in no apparent distress. CARDIOVASCULAR: Regular rate and rhythm without murmurs, gallops, or rubs. RESPIRATORY: b/l wheezing and poor air movement, but some mild improvement of her overall air movement from 08/06 GASTROINTESTINAL: Abdomen soft, non-tender, nondistended. Normal active bowel sounds MUSCULOSKELETAL: Extremities without clubbing, cyanosis, or edema. NEURO: Alert & Oriented x4 to person, place, time, situation. Moves all ext x4 A/P Problem List: (1) Failure to thrive in adult Status: Acute Plan: - Comgmt with GI - Pt admitted with severe weight loss, nausea, early satiety and poor appetite - There has been concern from her PCP for occult malignancy. - CT Abd/pelvis (07/30/16) --> Moderately severe bilateral hydronephrosis, possibly related to UPJ obstruction. Although I don't have the images, similar findings were described on the CT back in 2008. There is a 4 mm nonobstructing stone on the left. Left kidney is mildly atrophic. No evidence of malignancy within the abdomen or pelvis. - Ct Thorax (07/30/16) --> Emphysema with right upper lobe scarring and mild atypical, most likely inflammatory infiltrate in the lingula again noted. No evidence of malignancy of the chest. - Pt underwent evaluation with EGD/colonoscopy on 08/02/16 --> Esophagitis, gastritis, hiatal hernia, diverticulosis, 2 colonic polyps and hemorrhoids. - Pt c/o pain from T and L spine fx's. CT Thorax noted vertebral body compression fractures have developed since the prior study, presumably osteoporotic in nature. These are in the lower thoracic and upper lumbar spine. - Pain control PRN. - Try to minimize narcotic use - GES (08/05/16) --> delayed gastric emptying, some response with reglan - trial of IV reglan - Cont. PPI - obtain Barium Swallow study to assess esophageal physiology/motility (2) COPD (chronic obstructive pulmonary disease) Status: Acute Plan: - Pt with noted acute COPD flare - Pt is chronically on 2-3L of supplemental O2 at home. - Pt is on Solu-Medrol 60mg Q6H - Duonebs q4h and q2h prn - Pulmicort Q12H - Azithromycin (07/30 - 08/06/16) - CXR (08/06/16) - COPD changes - small mass in right lung field, but NOT seen on CT chest - study reviewed with Radiology, f/u CT in 6 months to assess stability recommended (3) Weight loss Status: Acute Plan: - As noted above (4) Anxiety Status: Chronic Plan: - Continue rx. (5) HTN (hypertension) Status: Chronic Plan: - improving - procardia xl 30mg daily - Clonidine PRN (6) Chronic back pain Status: Chronic Plan: - Pt with hx of multiple vertebral fractures in malnourished female. - Pain meds PRN - TLSO brace. Problem Qualifiers (1) COPD (chronic obstructive pulmonary disease): (2) Chronic back pain: Major Givens DO Aug 07, 2016 09:36
--- NOTE | 2016-08-07 11:59 | RADRPT ---
EXAM DATE/TIME: 08/07/2016 11:02 [facility] COMPARISON: No previous studies available for comparison. INDICATIONS : Dysphagia. Patient having the feeling of her pills getting stuck and going the wrong way. FLUORO TIME: 0.8 minutes IMAGE COUNT: 11 CONTRAST: 1. E-Z HD Barium Sulfate (98% w/w) MEDICAL HISTORY : Cardiovascular disease. Hypertension. Carcinoma, breast.GERD, Diabetes SURGICAL HISTORY : Cholecystectomy. ENCOUNTER: Initial ACUITY: 2 weeks PAIN SCORE: 0/10 LOCATION: Esophagus. FINDINGS: Air-contrast views of the hypopharynx demonstrate a normal mucosal surface without filling defect. R apid sequence images of the hypopharynx and cervical esophagus during the passage of barium demonstra te a normal swallowing function. No evidence of aspiration. Multiphasic examination of the esophagu s demonstrates no esophageal fold thickening, ulceration, or filling defect. The gastroesophageal ju nction is normal in configuration without evidence of hiatal hernia. CONCLUSION: No acute disease. Fredi Lewis MD on August 07, 2016 at 11:56 Board Certified Radiologist. This report was verified electronically.
[2016-08-07] MEDS: DOCUSATE SODIUM 100 MG CAP PO SCH ×2 (13:47→22:29)
[2016-08-08] VITALS (8 sets, daily range): BP systolic 141–170; BP diastolic 75–92; PULSE 85–120; RESP 17–20; TEMP 96.5–98.4; O2SAT 96–98
[2016-08-08] MEDS: RESP: ALBUTEROL 2.5 MG/IPRATROPIUM 0.5 MG NEB (SCH) NEB ×6 (04:00→19:41)
[2016-08-08] MEDS: METOCLOPRAMIDE HCL 10 MG/2 ML VIAL IV PUSH SCH ×3 (04:08→20:45)
[2016-08-08] MEDS: methylPREDNISolone SOD SUCC 125 MG/2 ML VIAL IV PUSH SCH ×4 (04:08→20:45)
[2016-08-08] MEDS: ACETAMINOPHEN/HYDROcodone 325 MG/7.5 MG TAB PO PRN ×3 (08:17→20:44)
[2016-08-08] MEDS: CALCIUM/VITAMIN D 250 MG/125 U TAB PO SCH ×2 (08:17→20:44)
[2016-08-08] MEDS: CITALOPRAM HYDROBROMIDE 20 MG TAB PO SCH (08:17)
[2016-08-08] MEDS: PANTOPRAZOLE SOD 40 MG DELAYED RELEASE TAB PO SCH (08:17)
[2016-08-08] MEDS: NIFEdipine 30 MG SUSTAINED RELEASE TAB PO SCH (08:17)
[2016-08-08] MEDS: CETIRIZINE HCL 10 MG TAB PO SCH (08:17)
[2016-08-08] MEDS: DOCUSATE SODIUM 100 MG CAP PO SCH ×2 (08:17→20:44)
--- NOTE | 2016-08-08 10:13 | HHI.PR ---
Subjective Remarks Pt c/o continued SOB when moving to the bedside commode. Pt agrees that there is some modest improvement in pt's PO intake. Objective Vitals Vital Signs Date Time Temp Pulse Resp B/P Pulse Ox O2 Delivery O2 Flow Rate FiO2 08/08/16 08:56 98 Nasal Cannula 2.00 08/08/16 08:32 98.2 92 20 170/92 96 08/08/16 04:00 96.5 85 17 153/82 98 08/08/16 00:00 96.6 110 17 145/75 98 08/07/16 23:34 16 08/07/16 20:00 96.9 113 17 168/85 96 08/07/16 19:26 98 Nasal Cannula 2.00 08/07/16 16:00 98.0 95 18 133/71 95 08/07/16 12:00 97.9 92 18 145/82 99 08/07/16 08/07/16 08/08/16 15:00 23:00 07:00 Intake Total 720 ml Balance 720 ml Intake Oral 720 ml # Voids 4 Imaging Last Impressions Chest X-Ray 08/06/16 1100 Signed Impressions: Service Date/Time: Saturday, August 06, 2016 11:57 - CONCLUSION: Hyperinflated lungs with emphysematous change and a mild right effusion. There is a small right lung mass. Fredi Lewis MD Gastric Emptying Nuclear Medicine 08/05/16 0000 Signed Impressions: Service Date/Time: Friday, August 05, 2016 10:16 - CONCLUSION: Delayed gastric emptying. Fredi Lewis MD Chest CT 07/30/16 0000 Signed Impressions: Service Date/Time: Saturday, July 30, 2016 22:40 - CONCLUSION: 1. Emphysema with right upper lobe scarring and mild atypical, most likely inflammatory infiltrate in the lingula again noted. 2. No evidence of malignancy of the chest. 3. Tortuous thoracic aorta. 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 4. Vertebral body compression fractures have developed since the prior study, presumably osteoporotic in nature. These are in the lower thoracic and upper lumbar spine. Clearly see an underlying bone lesion.. Fredi Schneider MD Abdomen/Pelvis CT 07/30/16 0000 Signed Impressions: Service Date/Time: Saturday, July 30, 2016 22:40 - CONCLUSION: 1. Moderately severe bilateral hydronephrosis, possibly related to UPJ obstruction. Although I don't have the images, similar findings were described on the CT back in 2008. There is a 4 mm nonobstructing stone on the left. Left kidney is mildly atrophic. 2. No evidence of malignancy within the abdomen or pelvis. 3. Uterine fibroid. Fredi Schneider MD Objective Remarks GENERAL: This is a well-nourished, well-developed patient, in no apparent distress. CARDIOVASCULAR: Regular rate and rhythm without murmurs, gallops, or rubs. RESPIRATORY: mild b/l expiratory wheezing, improved air movement from Friday. GASTROINTESTINAL: Abdomen soft, non-tender, nondistended. Normal active bowel sounds MUSCULOSKELETAL: Extremities without clubbing, cyanosis, or edema. NEURO: Alert & Oriented x4 to person, place, time, situation. Moves all ext x4 A/P Problem List: (1) Failure to thrive in adult Status: Acute Plan: - Comgmt with GI - Pt admitted with severe weight loss, nausea, early satiety and poor appetite - There has been concern from her PCP for occult malignancy. - CT Abd/pelvis (07/30/16) --> Moderately severe bilateral hydronephrosis, possibly related to UPJ obstruction. Although I don't have the images, similar findings were described on the CT back in 2008. There is a 4 mm nonobstructing stone on the left. Left kidney is mildly atrophic. No evidence of malignancy within the abdomen or pelvis. - Ct Thorax (07/30/16) --> Emphysema with right upper lobe scarring and mild atypical, most likely inflammatory infiltrate in the lingula again noted. No evidence of malignancy of the chest. - Pt underwent evaluation with EGD/colonoscopy on 08/02/16 --> Esophagitis, gastritis, hiatal hernia, diverticulosis, 2 colonic polyps and hemorrhoids. - Pt c/o pain from T and L spine fx's. CT Thorax noted vertebral body compression fractures have developed since the prior study, presumably osteoporotic in nature. These are in the lower thoracic and upper lumbar spine. - Pain control PRN. - Try to minimize narcotic use - GES (08/05/16) --> delayed gastric emptying, some response with reglan - trial of IV reglan, possible some mild improvement - Cont. PPI - Barium Swallow (08/07/16) --> NO acute disease (2) COPD (chronic obstructive pulmonary disease) Status: Acute Plan: - Pt with noted acute COPD flare - Pt is chronically on 2-3L of supplemental O2 at home. - Pt is on Solu-Medrol 60mg Q6H, if pt remains stable then I will change to PO prednisone 08/09 - Duonebs q4h and q2h prn - Pulmicort Q12H - Azithromycin (07/30 - 08/06/16) - CXR (08/06/16) - COPD changes - small mass in right lung field, but NOT seen on CT chest - study reviewed with Radiology, f/u CT in 6 months to assess stability recommended (3) Weight loss Status: Acute Plan: - As noted above (4) Anxiety Status: Chronic Plan: - Continue rx. (5) HTN (hypertension) Status: Chronic Plan: - improving - procardia xl 30mg daily - Clonidine PRN (6) Chronic back pain Status: Chronic Plan: - Pt with hx of multiple vertebral fractures in malnourished female. - Pain meds PRN - TLSO brace. - Pt might benefit from kyphoplasty - Will request Neurosurgical evaluation Problem Qualifiers (1) COPD (chronic obstructive pulmonary disease): (2) Chronic back pain: Major Givens DO Aug 08, 2016 10:12
[2016-08-08] MEDS: LISINOPRIL 10 MG TAB PO SCH ×2 (12:02→20:44)
[2016-08-08] MEDS: DIAZEPAM 5 MG TAB PO PRN (12:15)
--- NOTE | 2016-08-08 13:08 | HHI.NSPN ---
Attending Statement Consulted by the medical service for possible kyphoplasty for thoracic and lumbar vertebral body compression fractures. I do not see any thoracic or spinal imaging studies that have been undertaken and accordingly please obtain an MRI of the thoracic and lumbar spine so we can assess whether patient is a candidate for any procedure if her pulmonary condition allows. Otherwise would recommend pain management and rehabilitation. Lukasz Landin MD Aug 08, 2016 13:08
[2016-08-08] MEDS: RESP: BUDESONIDE 0.5 MG/2 ML NEB NEB SCH (19:41)
[2016-08-09] VITALS (8 sets, daily range): BP systolic 129–160; BP diastolic 70–93; PULSE 78–110; RESP 16–20; TEMP 97–98; O2SAT 97–100
[2016-08-09] MEDS: RESP: ALBUTEROL 2.5 MG/IPRATROPIUM 0.5 MG NEB (SCH) NEB ×6 (01:19→21:53)
[2016-08-09] MEDS: methylPREDNISolone SOD SUCC 125 MG/2 ML VIAL IV PUSH SCH ×4 (05:23→21:33)
[2016-08-09] MEDS: METOCLOPRAMIDE HCL 10 MG/2 ML VIAL IV PUSH SCH ×3 (05:23→21:32)
[2016-08-09] MEDS: ACETAMINOPHEN/HYDROcodone 325 MG/7.5 MG TAB PO PRN ×4 (05:24→21:30)
[2016-08-09] MEDS: RESP: BUDESONIDE 0.5 MG/2 ML NEB NEB SCH ×2 (08:48→21:53)
[2016-08-09] MEDS: CETIRIZINE HCL 10 MG TAB PO SCH (09:20)
[2016-08-09] MEDS: DIAZEPAM 5 MG TAB PO PRN (09:20)
[2016-08-09] MEDS: CALCIUM/VITAMIN D 250 MG/125 U TAB PO SCH ×2 (09:20→21:30)
[2016-08-09] MEDS: CITALOPRAM HYDROBROMIDE 20 MG TAB PO SCH (09:20)
[2016-08-09] MEDS: NIFEdipine 30 MG SUSTAINED RELEASE TAB PO SCH (09:20)
[2016-08-09] MEDS: PANTOPRAZOLE SOD 40 MG DELAYED RELEASE TAB PO SCH (09:20)
[2016-08-09] MEDS: LISINOPRIL 10 MG TAB PO SCH ×2 (09:20→21:30)
[2016-08-09] MEDS: DOCUSATE SODIUM 100 MG CAP PO SCH ×2 (09:20→21:29)
[2016-08-09] MEDS ORDERED: SODIUM CHLOR 0.9% 1000 ML INJ 1,000 ML IV SCH (10:00)
[2016-08-09] MEDS ORDERED: LORazepam 2 MG/ML VIAL IV PUSH PRN (12:30)
[2016-08-09] MEDS ORDERED: DOCUSATE SODIUM 50 MG/SENNA 8.6 MG TAB PO PRN (13:00)
--- NOTE | 2016-08-09 13:01 | HHI.PR ---
Subjective Remarks SOB is improving Pt was able to tolerate pancake for breakfast. Objective Vitals Vital Signs Date Time Temp Pulse Resp B/P Pulse Ox O2 Delivery O2 Flow Rate FiO2 08/09/16 08:51 99 Nasal Cannula 2.50 08/09/16 08:00 97.3 78 18 160/78 98 08/09/16 06:38 16 08/09/16 04:00 97.0 85 16 154/93 100 08/09/16 00:00 97.7 110 16 135/80 98 08/08/16 20:00 98.4 120 17 157/84 97 08/08/16 19:43 98 Nasal Cannula 2.00 08/08/16 16:00 97.9 108 18 141/79 97 08/08/16 08/08/16 08/09/16 15:00 23:00 07:00 Intake Total 960 ml 100 ml Output Total 800 ml Balance 160 ml 100 ml Intake Oral 960 ml 100 ml Output Urine Total 800 ml # Voids 1 Imaging Last Impressions Chest X-Ray 08/06/16 1100 Signed Impressions: Service Date/Time: Saturday, August 06, 2016 11:57 - CONCLUSION: Hyperinflated lungs with emphysematous change and a mild right effusion. There is a small right lung mass. Fredi Lewis MD Gastric Emptying Nuclear Medicine 08/05/16 0000 Signed Impressions: Service Date/Time: Friday, August 05, 2016 10:16 - CONCLUSION: Delayed gastric emptying. Fredi Lewis MD Chest CT 07/30/16 0000 Signed Impressions: Service Date/Time: Saturday, July 30, 2016 22:40 - CONCLUSION: 1. Emphysema with right upper lobe scarring and mild atypical, most likely inflammatory infiltrate in the lingula again noted. 2. No evidence of malignancy of the chest. 3. Tortuous thoracic aorta. 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 4. Vertebral body compression fractures have developed since the prior study, presumably osteoporotic in nature. These are in the lower thoracic and upper lumbar spine. Clearly see an underlying bone lesion.. Fredi Schneider MD Abdomen/Pelvis CT 07/30/16 0000 Signed Impressions: Service Date/Time: Saturday, July 30, 2016 22:40 - CONCLUSION: 1. Moderately severe bilateral hydronephrosis, possibly related to UPJ obstruction. Although I don't have the images, similar findings were described on the CT back in 2008. There is a 4 mm nonobstructing stone on the left. Left kidney is mildly atrophic. 2. No evidence of malignancy within the abdomen or pelvis. 3. Uterine fibroid. Fredi Schneider MD Objective Remarks GENERAL: This is a well-nourished, well-developed patient, in no apparent distress. CARDIOVASCULAR: Regular rate and rhythm without murmurs, gallops, or rubs. RESPIRATORY: mild b/l expiratory wheezing, improved air movement from Friday. GASTROINTESTINAL: Abdomen soft, non-tender, nondistended. Normal active bowel sounds MUSCULOSKELETAL: Extremities without clubbing, cyanosis, or edema. NEURO: Alert & Oriented x4 to person, place, time, situation. Moves all ext x4 A/P Problem List: (1) Failure to thrive in adult Status: Acute Plan: - Comgmt with GI - Pt admitted with severe weight loss, nausea, early satiety and poor appetite - There has been concern from her PCP for occult malignancy. - CT Abd/pelvis (07/30/16) --> Moderately severe bilateral hydronephrosis, possibly related to UPJ obstruction. Although I don't have the images, similar findings were described on the CT back in 2008. There is a 4 mm nonobstructing stone on the left. Left kidney is mildly atrophic. No evidence of malignancy within the abdomen or pelvis. - Ct Thorax (07/30/16) --> Emphysema with right upper lobe scarring and mild atypical, most likely inflammatory infiltrate in the lingula again noted. No evidence of malignancy of the chest. - Pt underwent evaluation with EGD/colonoscopy on 08/02/16 --> Esophagitis, gastritis, hiatal hernia, diverticulosis, 2 colonic polyps and hemorrhoids. - Pt c/o pain from T and L spine fx's. CT Thorax noted vertebral body compression fractures have developed since the prior study, presumably osteoporotic in nature. These are in the lower thoracic and upper lumbar spine. - Pain control PRN. - Try to minimize narcotic use - GES (08/05/16) --> delayed gastric emptying, some response with reglan - trial of IV reglan, some mild improvement --> will likely convert to PO 08/10 - Cont. PPI - Barium Swallow (08/07/16) --> NO acute disease (2) COPD (chronic obstructive pulmonary disease) Status: Acute Plan: - improving - Pt with noted acute COPD flare - Pt is chronically on 2-3L of supplemental O2 at home. - Pt is on Solu-Medrol 60mg Q6H, if pt remains stable then I will change to PO prednisone 08/10 - Duonebs q4h and q2h prn - Pulmicort Q12H - Azithromycin (07/30 - 08/06/16) - CXR (08/06/16) - COPD changes - small mass in right lung field, but NOT seen on CT chest - study reviewed with Radiology, f/u CT in 6 months to assess stability recommended (3) Weight loss Status: Acute Plan: - As noted above (4) Anxiety Status: Chronic Plan: - Continue rx. (5) HTN (hypertension) Status: Chronic Plan: - improving - procardia xl 30mg daily - Clonidine PRN (6) Chronic back pain Status: Chronic Plan: - comgmt with NSX - might benefit from kyphoplasty - Pt with hx of multiple vertebral fractures in malnourished female. - Pain meds PRN - TLSO brace. - await Lumbar spine MRI - await thoracic spine MRI - Pt adamantly refused MRI without general anesthesia which has been arranged for this evening Problem Qualifiers (1) COPD (chronic obstructive pulmonary disease): (2) Chronic back pain: Major Givens DO Aug 09, 2016 13:01
[2016-08-09] MEDS ORDERED: GADODIAMIDE PF 287 MG/ML 10 ML VIAL (for RAD MRI) IV ONE (14:40)
--- NOTE | 2016-08-09 14:49 | RADRPT ---
EXAM DATE/TIME: 08/09/2016 13:52 [facility] COMPARISON: No previous studies available for comparison. INDICATIONS : Constipation. MEDICAL HISTORY : Gastroesophageal reflux disease. diabetes SURGICAL HISTORY : Cholecystectomy. ENCOUNTER: Initial ACUITY: 4 - 6 days PAIN SCORE: 7/10 LOCATION: Bilateral abdomen FINDINGS: Supine view of the abdomen was performed. Barium oral contrast is seen throughout the colon. The denton ent had a barium swallow recently. Clips are seen in the right upper quadrant. Dilated bowel is not s een. The abdominal bowel gas pattern is normal. No abnormal masses, calcifications, or organomegaly is seen. There is a dextrocurvature of the thoracolumbar region. CONCLUSION: Barium contrast seen throughout much of the colon extending from the ascending colon to the descendin g colon. Fredi Lewis MD on August 09, 2016 at 14:45 Board Certified Radiologist. This report was verified electronically.
--- NOTE | 2016-08-09 15:23 | RADRPT ---
EXAM DATE/TIME: 08/09/2016 14:08 [facility] COMPARISON: CT THORAX W CONTRAST, July 30, 2016, 22:40. INDICATIONS : Pain. CONTRAST: 8 cc Omniscan (gadodiamide) IV MEDICAL HISTORY : Chronic obstructive pulmonary disease. Carcinoma, breast. SURGICAL HISTORY : Cholecystectomy. Left breast lumpectomy. Cataracts. ENCOUNTER: Subsequent ACUITY: 1 week PAIN SCORE: 8/10 LOCATION: Back. TECHNIQUE: Multiplanar multisequence MRI of the thoracic spine was performed. FINDINGS: VERTEBRA: There is increased signal seen throughout the T9 vertebral body. There is increased si gnal at the superior aspects of the T10 and to a lesser degree T11 vertebral bodies. There is some m inimal increased signal at the superior and inferior aspects of T12. The increased signal does not e xtend into the pedicles. There are mild concave deformities at the superior aspects of T10, T11, and T12. There is a prominent levocurvature of the thoracic spine with the apex at the T9 level. The t horacic vertebral bodies are normally aligned in the sagittal plane. CORD: Normal position and configuration. POST CONTRAST: No abnormal areas of contrast enhancement seen. T1-T2: Normal. T2-T3: The thecal sac has a normal diameter. No evidence of disc bulge or protrusion. T3-T4: The thecal sac has a normal diameter. No evidence of disc bulge or protrusion. T4-T5: The thecal sac has a normal diameter. No evidence of disc bulge or protrusion. T5-T6: The thecal sac has a normal diameter. No evidence of disc bulge or protrusion. T6-T7: The thecal sac has a normal diameter. No evidence of disc bulge or protrusion. T7-T8: The thecal sac has a normal diameter. No evidence of disc bulge or protrusion. T8-T9: The thecal sac has a normal diameter. No evidence of disc bulge or protrusion. T9-T10: The thecal sac has a normal diameter. No evidence of disc bulge or protrusion. T10-T11: The thecal sac has a normal diameter. No evidence of disc bulge or protrusion. T11-T12: The thecal sac has a normal diameter. No evidence of disc bulge or protrusion. T12-L1: The thecal sac has a normal diameter. No evidence of disc bulge or protrusion. CONCLUSION: Abnormal signal seen throughout the T9 vertebral body and to a lesser degree the supe rior aspects of the T10 vertebral body and to a much lesser degree the superior aspects of T11 and T1 2. The edema is likely from compression fractures. Underlying lesions are not seen. The edema does not extend into the pedicles. There is only minimal loss of height with concave deformities at the superior aspects of the T10, T11 and T12 levels. Fredi Lewis MD on August 09, 2016 at 15:07 Board Certified Radiologist. This report was verified electronically.
--- NOTE | 2016-08-09 15:30 | RADRPT ---
EXAM DATE/TIME: 08/09/2016 14:08 [facility] COMPARISON: No previous studies available for comparison. INDICATIONS : Pain. CONTRAST: 8 cc Omniscan (gadodiamide) IV MEDICAL HISTORY : Chronic obstructive pulmonary disease. Carcinoma, breast. SURGICAL HISTORY : Cholecystectomy. Left breast lumpectomy. Cataracts. ENCOUNTER: Subsequent ACUITY: 1 week PAIN SCORE: 8/10 LOCATION: Lower back TECHNIQUE: Multiplanar multisequence MRI of the lumbar spine was performed with and without contr ast. FINDINGS: The most caudal appearing lumbar vertebra is numbered as L5. VERTEBRAE: There are prominent concave deformities at the inferior aspects of L1, the superior an d inferior aspects of L2, the superior and inferior aspects of L3 and superior aspects of L4. It appe ars the L1 vertebral body has lost approximately 25% of its original height. There appears to be mor e loss of height up to one/half the original lumbar vertebral body height at the L2, L3 and L4 levels . On the T2 weighted images there is edema seen at the inferior aspect of L1, the anterior and mid s uperior inferior aspects of L2, the inferior and superior aspects of L3, the superior and inferior as pects of L4 and the superior aspects of L5. The edema likely represents ongoing compression. There appears to be an actual fracture line seen at the inferior aspects of L1 and L3 on the T1 weighed im ages. The edema does not extend into the pedicles. Underlying bone lesions are not seen. CONUS: Normal level and configuration. POST CONTRAST: No abnormal areas of contrast enhancement are seen. T12-L1: The thecal sac has a normal diameter. No evidence of disc bulge or protrusion. The neural foramina are patent bilaterally. L1-L2: The thecal sac has a normal diameter. No evidence of disc bulge or protrusion. The neural f oramina are patent bilaterally. L2-L3: The thecal sac has a normal diameter. No evidence of disc bulge or protrusion. The neural f oramina are patent bilaterally. L3-L4: The thecal sac has a normal diameter. No evidence of disc bulge or protrusion. The neural f oramina are patent bilaterally. L4-L5: The thecal sac has a normal diameter. No evidence of disc bulge or protrusion. The neural f oramina are patent bilaterally. L5-S1: The thecal sac has a normal diameter. No evidence of disc bulge or protrusion. The neural f oramina are patent bilaterally. CONCLUSION: Concave compression deformities at throughout the lumbar spine as described above. T here is edema at these levels suggesting there is some ongoing compression. There has been mild loss of height at L1 and a more moderate loss of height at the L2 through L4 levels. Underlying bone les ions are not seen. Fredi Lewis MD on August 09, 2016 at 15:16 Board Certified Radiologist. This report was verified electronically.
[2016-08-10] VITALS (8 sets, daily range): BP systolic 121–169; BP diastolic 75–101; PULSE 75–100; RESP 17–20; TEMP 96.4–99.3; O2SAT 94–100
[2016-08-10] MEDS: methylPREDNISolone SOD SUCC 125 MG/2 ML VIAL IV PUSH SCH ×2 (03:49→09:35)
[2016-08-10] MEDS: RESP: ALBUTEROL 2.5 MG/IPRATROPIUM 0.5 MG NEB (SCH) NEB ×4 (03:52→20:58)
[2016-08-10] MEDS: METOCLOPRAMIDE HCL 10 MG/2 ML VIAL IV PUSH SCH (05:35)
[2016-08-10] MEDS: DOCUSATE SODIUM 100 MG CAP PO SCH ×2 (09:35→20:39)
[2016-08-10] MEDS: PANTOPRAZOLE SOD 40 MG DELAYED RELEASE TAB PO SCH (09:35)
[2016-08-10] MEDS: NIFEdipine 30 MG SUSTAINED RELEASE TAB PO SCH (09:35)
[2016-08-10] MEDS: CALCIUM/VITAMIN D 250 MG/125 U TAB PO SCH ×2 (09:35→20:40)
[2016-08-10] MEDS: LISINOPRIL 10 MG TAB PO SCH ×2 (09:35→20:40)
[2016-08-10] MEDS: CITALOPRAM HYDROBROMIDE 20 MG TAB PO SCH (09:36)
[2016-08-10] MEDS: CETIRIZINE HCL 10 MG TAB PO SCH (09:36)
[2016-08-10] MEDS: ACETAMINOPHEN/HYDROcodone 325 MG/7.5 MG TAB PO PRN ×2 (09:40→16:55)
[2016-08-10] MEDS: RESP: BUDESONIDE 0.5 MG/2 ML NEB NEB SCH ×2 (10:04→21:01)
--- NOTE | 2016-08-10 11:33 | HHI.PR ---
Subjective Remarks SOB improved from admission. Pt's PO intake has improved since starting on reglan, but still limited. Objective Vitals Vital Signs Date Time Temp Pulse Resp B/P Pulse Ox O2 Delivery O2 Flow Rate FiO2 08/10/16 10:06 98 Nasal Cannula 2.50 08/10/16 08:00 98.3 79 20 169/82 96 08/10/16 04:00 96.4 78 17 121/75 100 08/10/16 00:00 98.0 80 18 125/79 94 08/09/16 21:55 99 Nasal Cannula 2.00 08/09/16 20:00 97.2 86 17 129/70 98 08/09/16 16:00 98.0 90 18 151/87 99 08/09/16 12:00 98.0 92 20 130/79 97 08/09/16 08/09/16 08/10/16 15:00 23:00 07:00 Intake Total 480 ml 360 ml 240 ml Output Total 250 ml 200 ml Balance 480 ml 110 ml 40 ml Intake Oral 480 ml 240 ml 240 ml IV Total 120 ml Output Urine Total 250 ml 200 ml # Voids 2 Imaging Last Impressions Thoracic Spine MRI 08/09/16 0000 Signed Impressions: Service Date/Time: Tuesday, August 09, 2016 14:08 - CONCLUSION: Abnormal signal seen throughout the T9 vertebral body and to a lesser degree the superior aspects of the T10 vertebral body and to a much lesser degree the superior aspects of T11 and T12. The edema is likely from compression fractures. Underlying lesions are not seen. The edema does not extend into the pedicles. There is only minimal loss of height with concave deformities at the superior aspects of the T10, T11 and T12 levels. Fredi Lewis MD Lumbar Spine MRI 08/09/16 0000 Signed Impressions: Service Date/Time: Tuesday, August 09, 2016 14:08 - CONCLUSION: Concave compression deformities at throughout the lumbar spine as described above. There is edema at these levels suggesting there is some ongoing compression. There has been mild loss of height at L1 and a more moderate loss of height at the L2 through L4 levels. Underlying bone lesions are not seen. Fredi Lewis MD Abdomen X-Ray 08/09/16 0000 Signed Impressions: Service Date/Time: Tuesday, August 09, 2016 13:52 - CONCLUSION: Barium contrast seen throughout much of the colon extending from the ascending colon to the descending colon. Fredi Lewis MD Barium Swallow X-Ray 08/07/16 0000 Signed Impressions: Service Date/Time: Sunday, August 07, 2016 11:02 - CONCLUSION: No acute disease. Fredi Lewis MD Chest X-Ray 08/06/16 1100 Signed Impressions: Service Date/Time: Saturday, August 06, 2016 11:57 - CONCLUSION: Hyperinflated lungs with emphysematous change and a mild right effusion. There is a small right lung mass. Fredi Lewis MD ADDENDUM: COMPARISON: CT ABDOMEN & PELVIS W CONTRAST, July 30, 2016, 22:40. CT THORAX W CONTRAST, January, 14:04. I have been asked to review this case. The focal density in the right upper lung is identified on the [address] examinations. There appears to be an irregular area of density in this region likely related to scarring. An irregular mass cannot be excluded. Significant change between the 2 scans is not seen. Continued followup would be recommended with a followup noncontrast CT examination in 3-6 months. Fredi Lewis MD Gastric Emptying Nuclear Medicine 08/05/16 0000 Signed Impressions: Service Date/Time: Friday, August 05, 2016 10:16 - CONCLUSION: Delayed gastric emptying. Fredi Lewis MD Chest CT 07/30/16 0000 Signed Impressions: Service Date/Time: Saturday, July 30, 2016 22:40 - CONCLUSION: 1. Emphysema with right upper lobe scarring and mild atypical, most likely inflammatory infiltrate in the lingula again noted. 2. No evidence of malignancy of the chest. 3. Tortuous thoracic aorta. 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 4. Vertebral body compression fractures have developed since the prior study, presumably osteoporotic in nature. These are in the lower thoracic and upper lumbar spine. Clearly see an underlying bone lesion.. Fredi Schneider MD ADDENDUM: I have been asked to review this study. The fourth impression should read that no clearly seen underlying bone lesion is present. Fredi Lewis MD Abdomen/Pelvis CT 07/30/16 0000 Signed Impressions: Service Date/Time: Saturday, July 30, 2016 22:40 - CONCLUSION: 1. Moderately severe bilateral hydronephrosis, possibly related to UPJ obstruction. Although I don't have the images, similar findings were described on the CT back in 2008. There is a 4 mm nonobstructing stone on the left. Left kidney is mildly atrophic. 2. No evidence of malignancy within the abdomen or pelvis. 3. Uterine fibroid. Fredi Schneider MD Objective Remarks GENERAL: This is a well-nourished, well-developed patient, in no apparent distress. CARDIOVASCULAR: Regular rate and rhythm without murmurs, gallops, or rubs. RESPIRATORY: mild b/l expiratory wheezing, improved air movement from Friday. GASTROINTESTINAL: Abdomen soft, non-tender, nondistended. Normal active bowel sounds MUSCULOSKELETAL: Extremities without clubbing, cyanosis, or edema. NEURO: Alert & Oriented x4 to person, place, time, situation. Moves all ext x4 A/P Problem List: (1) Failure to thrive in adult Status: Acute Plan: - Comgmt with GI - Pt admitted with severe weight loss, nausea, early satiety and poor appetite - There has been concern from her PCP for occult malignancy. - CT Abd/pelvis (07/30/16) --> Moderately severe bilateral hydronephrosis, possibly related to UPJ obstruction. Although I don't have the images, similar findings were described on the CT back in 2008. There is a 4 mm nonobstructing stone on the left. Left kidney is mildly atrophic. No evidence of malignancy within the abdomen or pelvis. - Ct Thorax (07/30/16) --> Emphysema with right upper lobe scarring and mild atypical, most likely inflammatory infiltrate in the lingula again noted. No evidence of malignancy of the chest. - Pt underwent evaluation with EGD/colonoscopy on 08/02/16 --> Esophagitis, gastritis, hiatal hernia, diverticulosis, 2 colonic polyps and hemorrhoids. - Pt c/o pain from T and L spine fx's. CT Thorax noted vertebral body compression fractures have developed since the prior study, presumably osteoporotic in nature. These are in the lower thoracic and upper lumbar spine. - Pain control PRN. - Try to minimize narcotic use - GES (08/05/16) --> delayed gastric emptying, some response with reglan - trial of IV reglan, some mild improvement --> will likely convert to PO 08/10 - Cont. PPI - Barium Swallow (08/07/16) --> NO acute disease - I feel that the pt's weight loss is most likely d/t a combination of her chronic disease states: COPD severe, gastroparesis, and compression fractures. - trial of megace - Anticipate d/c to SNF in 1-2 days (2) Gastroparesis Status: Acute Plan: - likely worsened by narcotic use - GES (08/05/16) --> delayed gastric emptying, some response to reglan - if possible, try to minimize narcotic use - Some improvement in PO intake with IV reglan, change to PO reglan - observe clinical response - Pt to f/u with GI 3 weeks after discharge (3) COPD (chronic obstructive pulmonary disease) Status: Acute Plan: - improving - Pt with noted acute COPD flare - Pt is chronically on 2-3L of supplemental O2 at home. - change solumedrol to PO prednison - Duonebs q6h and q2h prn - Pulmicort Q12H - Azithromycin (07/30 - 08/06/16) - CXR (08/06/16) - COPD changes - small mass in right lung field, but NOT seen on CT chest - study reviewed with Radiology, f/u CT in 6 months to assess stability recommended (4) Weight loss Status: Acute Plan: - As noted above (5) Anxiety Status: Chronic Plan: - Continue rx. (6) HTN (hypertension) Status: Chronic Plan: - improving - procardia xl 30mg daily - Clonidine PRN (7) Chronic back pain Status: Chronic Plan: - comgmt with NSX - might benefit from kyphoplasty? - Pt with hx of multiple vertebral fractures in malnourished female. - Pain meds PRN - TLSO brace. - Lumbar spine MRI (08/10/16) --> possible subacute compression fracture at L1, multiple chronic lumbar compression fractures - Thoracic spine MRI (07/30/16) --> subacute compression fractures at T9 & T10 with bone edema - Case d/w Dr. Landin (08/09/16). He favored conservative mgmt. - I will have Ms. Dorsey continue to wear TLSO brace when out of bed and f/u with Dr. Landin in 4 weeks. (8) Closed compression fracture of lumbar vertebra Status: Acute Plan: - see above (9) Closed compression fracture of thoracic vertebra Status: Acute Plan: - see above Problem Qualifiers (1) COPD (chronic obstructive pulmonary disease): (2) Chronic back pain: Major Givens DO Aug 10, 2016 11:33
[2016-08-10] MEDS: MEGESTROL ACETATE SUSP 400 MG/10 ML CUP PO SCH ×2 (12:34→20:40)
[2016-08-10] MEDS: METOCLOPRAMIDE HCL 10 MG TAB PO SCH ×2 (16:55→20:39)
[2016-08-10] MEDS: predniSONE 10 MG TAB PO SCH (20:39)
[2016-08-11] VITALS (8 sets, daily range): BP systolic 132–186; BP diastolic 79–91; PULSE 85–114; RESP 16–20; TEMP 97.9–98.8; O2SAT 94–100
[2016-08-11] MEDS: RESP: ALBUTEROL 2.5 MG/IPRATROPIUM 0.5 MG NEB (SCH) NEB ×4 (03:23→21:12)
[2016-08-11] MEDS: METOCLOPRAMIDE HCL 10 MG TAB PO SCH ×4 (06:03→20:42)
[2016-08-11] MEDS: RESP: BUDESONIDE 0.5 MG/2 ML NEB NEB SCH ×2 (08:55→21:12)
[2016-08-11] MEDS: CALCIUM/VITAMIN D 250 MG/125 U TAB PO SCH ×2 (09:41→20:42)
[2016-08-11] MEDS: MEGESTROL ACETATE SUSP 400 MG/10 ML CUP PO SCH ×2 (09:41→20:42)
[2016-08-11] MEDS: CITALOPRAM HYDROBROMIDE 20 MG TAB PO SCH (09:42)
[2016-08-11] MEDS: PANTOPRAZOLE SOD 40 MG DELAYED RELEASE TAB PO SCH (09:42)
[2016-08-11] MEDS: LISINOPRIL 10 MG TAB PO SCH ×2 (09:42→20:42)
[2016-08-11] MEDS: CETIRIZINE HCL 10 MG TAB PO SCH (09:42)
[2016-08-11] MEDS: DOCUSATE SODIUM 100 MG CAP PO SCH ×2 (09:42→20:44)
[2016-08-11] MEDS: predniSONE 10 MG TAB PO SCH ×2 (09:42→20:42)
[2016-08-11] MEDS: NIFEdipine 30 MG SUSTAINED RELEASE TAB PO SCH (09:42)
[2016-08-11] MEDS: ACETAMINOPHEN/HYDROcodone 325 MG/7.5 MG TAB PO PRN ×2 (09:46→17:34)
[2016-08-11] MEDS ORDERED: LISI-515 PO (11:35)
[2016-08-11] MEDS ORDERED: BUDE.5I NEB (11:35)
[2016-08-11] MEDS ORDERED: ALBU1.25 NEB (11:35)
[2016-08-11] MEDS ORDERED: METO10TA PO (11:35)
[2016-08-11] MEDS ORDERED: MEGE40SU PO (11:35)
[2016-08-11] MEDS ORDERED: IPRA0.02 NEB (11:35)
[2016-08-11] MEDS ORDERED: HYDR-3583 PO (11:35)
[2016-08-11] MEDS ORDERED: DOCU1CAP39 PO (11:35)
[2016-08-11] MEDS ORDERED: PANT40TA3 PO (11:35)
[2016-08-11] MEDS ORDERED: NIFE30TA8 PO (11:35)
[2016-08-11] MEDS ORDERED: DIAZ5 PO (11:35)
--- NOTE | 2016-08-11 11:45 | HHI.DS ---
Discharge Summary Admission Date Jul 30, 2016 at 14:25 Admitting Diagnosis COPD exac/ Failure to Thrive (1) Failure to thrive in adult Diagnosis: Principal (2) Gastroparesis Diagnosis: Principal (3) COPD (chronic obstructive pulmonary disease) Diagnosis: Principal (4) Weight loss Diagnosis: Principal (5) Chronic back pain Diagnosis: Principal (6) Closed compression fracture of lumbar vertebra Diagnosis: Principal (7) Closed compression fracture of thoracic vertebra Diagnosis: Principal (8) Anxiety Diagnosis: Secondary (9) HTN (hypertension) Diagnosis: Secondary Consultants Dr. Lukasz Landin, Neurosurgery Brief History 60 yo WF with severe COPD, anxiety, compression frxs well known to me initially presented to my office for weight loss, back pain and worsening cough/sob. It was noted that pt was quite frail and weak on exam. Her sats were in low 90s even on 3 L/min nc and she had lost an additional 11 lbs since Apr 2016. She has lost total of 19 lbs since October 2015. She has noted persistent nausea with early satiety over last 2 mos. Has also been having considerable back pain a/w her vertebral fractures. She lives alone and has very scan transportation. It was deemed most appropriate to directly admit pt to hospital for further w/u. She was agreeable and actually anxious to have this w/u. Advised Dr Pool of admission. Imaging Last Impressions Thoracic Spine MRI 08/09/16 0000 Signed Impressions: Service Date/Time: Tuesday, August 09, 2016 14:08 - CONCLUSION: Abnormal signal seen throughout the T9 vertebral body and to a lesser degree the superior aspects of the T10 vertebral body and to a much lesser degree the superior aspects of T11 and T12. The edema is likely from compression fractures. Underlying lesions are not seen. The edema does not extend into the pedicles. There is only minimal loss of height with concave deformities at the superior aspects of the T10, T11 and T12 levels. Fredi Lewis MD Lumbar Spine MRI 08/09/16 0000 Signed Impressions: Service Date/Time: Tuesday, August 09, 2016 14:08 - CONCLUSION: Concave compression deformities at throughout the lumbar spine as described above. There is edema at these levels suggesting there is some ongoing compression. There has been mild loss of height at L1 and a more moderate loss of height at the L2 through L4 levels. Underlying bone lesions are not seen. Fredi Lewis MD Abdomen X-Ray 08/09/16 0000 Signed Impressions: Service Date/Time: Tuesday, August 09, 2016 13:52 - CONCLUSION: Barium contrast seen throughout much of the colon extending from the ascending colon to the descending colon. Fredi Lewis MD Barium Swallow X-Ray 08/07/16 0000 Signed Impressions: Service Date/Time: Sunday, August 07, 2016 11:02 - CONCLUSION: No acute disease. Fredi Lewis MD Chest X-Ray 08/06/16 1100 Signed Impressions: Service Date/Time: Saturday, August 06, 2016 11:57 - CONCLUSION: Hyperinflated lungs with emphysematous change and a mild right effusion. There is a small right lung mass. Fredi Lewis MD ADDENDUM: COMPARISON: CT ABDOMEN & PELVIS W CONTRAST, July 30, 2016, 22:40. CT THORAX W CONTRAST, January, 14:04. I have been asked to review this case. The focal density in the right upper lung is identified on the [address] examinations. There appears to be an irregular area of density in this region likely related to scarring. An irregular mass cannot be excluded. Significant change between the 2 scans is not seen. Continued followup would be recommended with a followup noncontrast CT examination in 3-6 months. Fredi Lewis MD Gastric Emptying Nuclear Medicine 08/05/16 0000 Signed Impressions: Service Date/Time: Friday, August 05, 2016 10:16 - CONCLUSION: Delayed gastric emptying. Fredi Lewis MD Chest CT 07/30/16 0000 Signed Impressions: Service Date/Time: Saturday, July 30, 2016 22:40 - CONCLUSION: 1. Emphysema with right upper lobe scarring and mild atypical, most likely inflammatory infiltrate in the lingula again noted. 2. No evidence of malignancy of the chest. 3. Tortuous thoracic aorta. 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 4. Vertebral body compression fractures have developed since the prior study, presumably osteoporotic in nature. These are in the lower thoracic and upper lumbar spine. Clearly see an underlying bone lesion.. Fredi Schneider MD ADDENDUM: I have been asked to review this study. The fourth impression should read that no clearly seen underlying bone lesion is present. Fredi Lewis MD Abdomen/Pelvis CT 07/30/16 0000 Signed Impressions: Service Date/Time: Saturday, July 30, 2016 22:40 - CONCLUSION: 1. Moderately severe bilateral hydronephrosis, possibly related to UPJ obstruction. Although I don't have the images, similar findings were described on the CT back in 2008. There is a 4 mm nonobstructing stone on the left. Left kidney is mildly atrophic. 2. No evidence of malignancy within the abdomen or pelvis. 3. Uterine fibroid. Fredi Schneider MD PE at Discharge GENERAL: This is a well-nourished, well-developed patient, in no apparent distress. CARDIOVASCULAR: Regular rate and rhythm without murmurs, gallops, or rubs. RESPIRATORY: mild b/l expiratory wheezing, improved air movement from Friday. GASTROINTESTINAL: Abdomen soft, non-tender, nondistended. Normal active bowel sounds MUSCULOSKELETAL: Extremities without clubbing, cyanosis, or edema. NEURO: Alert & Oriented x4 to person, place, time, situation. Moves all ext x4 Hospital Course 1) Failure to thrive in adult Status: Acute Plan: - Comgmt with GI - Pt admitted with severe weight loss, nausea, early satiety and poor appetite - There has been concern from her PCP for occult malignancy. - CT Abd/pelvis (07/30/16) --> Moderately severe bilateral hydronephrosis, possibly related to UPJ obstruction. Although I don't have the images, similar findings were described on the CT back in 2008. There is a 4 mm nonobstructing stone on the left. Left kidney is mildly atrophic. No evidence of malignancy within the abdomen or pelvis. - Ct Thorax (07/30/16) --> Emphysema with right upper lobe scarring and mild atypical, most likely inflammatory infiltrate in the lingula again noted. No evidence of malignancy of the chest. - Pt underwent evaluation with EGD/colonoscopy on 08/02/16 --> Esophagitis, gastritis, hiatal hernia, diverticulosis, 2 colonic polyps and hemorrhoids. - Pt c/o pain from T and L spine fx's. CT Thorax noted vertebral body compression fractures have developed since the prior study, presumably osteoporotic in nature. These are in the lower thoracic and upper lumbar spine. - Pain control PRN. - Try to minimize narcotic use - GES (08/05/16) --> delayed gastric emptying, some response with reglan - continue PO reglan upon discharge - Cont. PPI - Barium Swallow (08/07/16) --> NO acute disease - I feel that the pt's weight loss is most likely d/t a combination of her chronic disease states: COPD severe, gastroparesis, and compression fractures. - trial of megace - Pt adamantly refused discharge to SNF. I feel this is a huge mistake. However, I have arranged for HHC and Home PT. Pt already has home oxygen. - I did inform pt that if she fails at home, she can call [facility] to arrange SNF at any point - f/u with PCP, Dr. Monson, in 1 week - will discharge to home in the AM, pt will need to stop at [facility] pharmacy on the way home to pick up operator new medications. There were many medication changes during this hospitalization. (2) Gastroparesis Status: Acute Plan: - likely worsened by narcotic use - GES (08/05/16) --> delayed gastric emptying, some response to reglan - if possible, try to minimize narcotic use - Some improvement with reglan - Pt to f/u with GI 3 weeks after discharge (3) COPD (chronic obstructive pulmonary disease) Status: Acute Plan: - improving - Pt with noted acute COPD flare - Pt is chronically on 2-3L of supplemental O2 at home. - PO prednisone - Duonebs q6h and q2h prn - Pulmicort Q12H - Azithromycin (07/30 - 08/06/16) - CXR (08/06/16) - COPD changes - small mass in right lung field, but NOT seen on CT chest - study reviewed with Radiology, f/u CT in 6 months to assess stability recommended (4) Weight loss Status: Acute Plan: - As noted above (5) Anxiety Status: Chronic Plan: - Continue rx. (6) HTN (hypertension) Status: Chronic Plan: - improving - procardia xl 30mg daily - Clonidine PRN (7) Chronic back pain Status: Chronic Plan: - comgmt with NSX - might benefit from kyphoplasty? - Pt with hx of multiple vertebral fractures in malnourished female. - Pain meds PRN - TLSO brace. - Lumbar spine MRI (08/10/16) --> possible subacute compression fracture at L1, multiple chronic lumbar compression fractures - Thoracic spine MRI (07/30/16) --> subacute compression fractures at T9 & T10 with bone edema - Case d/w Dr. Landin (08/09/16). He favored conservative mgmt. - I will have Ms. Dorsey continue to wear TLSO brace when out of bed and f/u with Dr. Landin in 4 weeks. (8) Closed compression fracture of lumbar vertebra Status: Acute Plan: - see above (9) Closed compression fracture of thoracic vertebra Status: Acute Plan: - see above Pt Condition on Discharge: Stable Discharge Disposition: Disch w/ Home Health Serv Discharge Instructions DIET: Follow Instructions for: Heart Healthy Diet Activities you can perform: Weight Bearing as Josh Follow up Referrals: Gastroenterology - 3 Weeks with Mignon Mcginnis MD Neurosurgery - 4 Weeks with Lukasz Landin MD PCP Follow-up - [address] Power Monson New Medications: Ipratropium Neb (Ipratropium Neb) 0.5 Mg/2.5 Ml Amp 0.5 MG NEB Q6HR NEB USE Q6hr SCHEDULED ALONG WITH ALBUTEROL NEBULE Breathing Treatment #50 Ref 0 NEBULE Lisinopril (Lisinopril) 20 Mg Tab 20 MG PO BID #60 Ref 0 TAB Budesonide Neb (Pulmicort Respules) 0.5 Mg/2 Ml Neb 0.5 MG NEB Q12HR NEB COPD #60 Ref 0 NEBULE Docusate Sodium (Dok) 100 Mg Cap 100 MG PO BID CONSTIPATION #60 Ref 0 CAP Megestrol Liq (Megestrol Liq) 40 Mg/Ml Susp 400 MG PO BID WEIGHT LOSS #60 Ref 0 ML Metoclopramide (Metoclopramide) 10 Mg Tab 10 MG PO ACHS GASTROPARESIS #90 Ref 0 TAB Nifedipine ER 24 HR (Nifedipine ER 24 HR) 30 Mg Tab 30 MG PO DAILY HTN #30 Ref 0 TAB Pantoprazole (Pantoprazole) 40 Mg Tab 40 MG PO DAILY GASTRITIS #30 Ref 0 TAB Changed Medications: Albuterol Neb (Albuterol Neb) 1.25 Mg/3 Ml Neb 1.25 MG NEB Q6HR Q6HRS SCHEDULED AND Q2 HOURS PRN SOB USE WITH ATROVENT NEBULE COPD #50 Ref 0 NEBULE (Changed from: Q4HR NEB; Removed Reason) Continued Medications: Albuterol 6.7 GM Inh (Proventil Hfa 6.7 GM Inh) 90 Mcg/Act Aer 2 PUFF INH Q4-6H PRN SHORTNESS OF BREATH #1 Ref 0 INHALER Cetirizine (Zyrtec Allergy) 10 Mg Tab 10 MG PO DAILY Allergies Ref 0 TAB Citalopram (Celexa) 20 Mg Tab 20 MG PO DAILY Control Depression #30 Ref 0 TAB Diazepam (Valium) 5 Mg Tab 5 MG PO BID PRN ANXIETY #15 Ref 0 TAB (This prescription has been renewed) Hydrocodone-Acetaminophen (Hydrocodone-Acetaminophen) 10-325 mg Tab 1 TAB PO Q6H PRN PAIN #15 Ref 0 TAB (This prescription has been renewed) Discontinued Medications: Fluticasone-Salmeterol Inh (Advair Diskus Inh) 250-50 Mcg/Blist Aer 1 PUFF INH BID Rinse mouth after use. #1 Ref 0 INHALER Prednisone (Prednisone) 20 Mg Tab 20 MG PO BID Ref 0 TAB Triamterene-Hydrochlorothiazide (Maxzide-25) 37.5-25 Mg Tab 1 TAB PO DAILY #30 Ref 0 TAB Major Givens DO Aug 11, 2016 11:45
--- NOTE | 2016-08-11 11:50 | HHI.DCPOC ---
Discharge Care Plan Diagnosis: (1) Failure to thrive in adult (2) Gastroparesis (3) Closed compression fracture of thoracic vertebra (4) Closed compression fracture of lumbar vertebra (5) COPD (chronic obstructive pulmonary disease) (6) Chronic back pain (7) HTN (hypertension) (8) Weight loss (9) Anxiety Goals to Promote Your Health * To prevent worsening of your condition and complications * To maintain your health at the optimal level Directions to Meet Your Goals Take your medications as prescribed Follow your dietary instruction Follow activity as directed Keep your appointments as scheduled Take your immunizations and boosters as scheduled If your symptoms worsen call your PCP, if no PCP go to Urgent Care Center or Emergency Room Smoking is Dangerous to Your Health. Avoid second hand smoke Call the 24-hour hour crisis hotline for domestic abuse at Major Givens DO Aug 11, 2016 11:50
--- NOTE | 2016-08-11 11:50 | HHI.FF ---
Face to Face Verification Diagnosis: (1) Failure to thrive in adult (2) Gastroparesis (3) Closed compression fracture of thoracic vertebra (4) Closed compression fracture of lumbar vertebra (5) COPD (chronic obstructive pulmonary disease) (6) Chronic back pain (7) HTN (hypertension) (8) Weight loss (9) Anxiety Physical Therapy Order: Evaluate and Treat, Improve ambulation, Strength and gait training Home Health Nursing Order: Medical education Signs/symptoms of disease process Oxygen administration education Medication education-adverse effect Nursing assessment with vital signs Instructions: Pt with medication changes during hospitalization & will need help keep track of correct medication regimen Rn Circulating Order: To Evaluate: Living conditions/environment, Support services Order: To Provide: Long range planning, Community services I have seen patient Corina Dorsey on 08/11/16. My clinical findings support the need for the requested home health care services because: Ltd mobility - disease progression Patient has SOB Deconditioned w/ increased weakness Med compliance is questionable Limited ability to care for self Need for psychosocial assistance Impaired cognition/judgement I certify that my clinical findings support that this patient is homebound because: Impaired cognitive ability/safety Hx COPD- exertion dyspnea/weakness Unsteady gait/balance Unsafe to leave home unassisted Need for psychosocial assistance Unable to use public transportation Major Givens DO Aug 11, 2016 11:50
[2016-08-12] VITALS: BP 133/75; PULSE 96; RESP 17; TEMP 96.8; O2SAT 97
[2016-08-12] MEDS: RESP: ALBUTEROL 2.5 MG/IPRATROPIUM 0.5 MG NEB (SCH) NEB ×3 (03:45→15:42)
[2016-08-12 04:00] VITALS: BP 163/87; PULSE 84; RESP 17; TEMP 97.7; O2SAT 98
[2016-08-12] MEDS: METOCLOPRAMIDE HCL 10 MG TAB PO SCH ×3 (05:35→16:28)
[2016-08-12 08:00] VITALS: BP 157/101; PULSE 83; RESP 16; TEMP 97.6; O2SAT 100
[2016-08-12] MEDS: RESP: BUDESONIDE 0.5 MG/2 ML NEB NEB SCH (08:17)
[2016-08-12 08:18] VITALS: O2SAT 98
[2016-08-12] MEDS: DOCUSATE SODIUM 100 MG CAP PO SCH (09:00)
[2016-08-12] MEDS: CALCIUM/VITAMIN D 250 MG/125 U TAB PO SCH (09:54)
[2016-08-12] MEDS: NIFEdipine 30 MG SUSTAINED RELEASE TAB PO SCH (09:54)
[2016-08-12] MEDS: CETIRIZINE HCL 10 MG TAB PO SCH (09:54)
[2016-08-12] MEDS: CITALOPRAM HYDROBROMIDE 20 MG TAB PO SCH (09:54)
[2016-08-12] MEDS: PANTOPRAZOLE SOD 40 MG DELAYED RELEASE TAB PO SCH (09:54)
[2016-08-12] MEDS: predniSONE 10 MG TAB PO SCH (09:54)
[2016-08-12] MEDS: LISINOPRIL 10 MG TAB PO SCH (09:55)
[2016-08-12] MEDS: ACETAMINOPHEN/HYDROcodone 325 MG/7.5 MG TAB PO PRN ×2 (09:55→14:12)
[2016-08-12] MEDS: MEGESTROL ACETATE SUSP 400 MG/10 ML CUP PO SCH (09:55)
[2016-08-12 12:00] VITALS: BP 123/84; PULSE 103; RESP 16; TEMP 98.1; O2SAT 97
[2016-08-12 16:00] VITALS: BP 160/95; PULSE 100; RESP 16; TEMP 97.9; O2SAT 96
[2016-08-12] MEDS ORDERED: DIAZ5 PO (17:41)
[2016-08-12] MEDS ORDERED: HYDR-3583 PO (17:43)
== END 2016-08-12 17:59 | disposition home health service (06) | DRG 190 ==
LOC: HOCB 14:25
PROVIDERS: ADMIT Hospitalist; ATTEND Hospitalist
PROC: 0DBN8ZX Excision of Sigmoid Colon, Via Natural or Artificial Opening Endoscopic, Diagnostic (ICD-10-PCS; 2016-08-02)
PROC: 0DB58ZX Excision of Esophagus, Via Natural or Artificial Opening Endoscopic, Diagnostic (ICD-10-PCS; principal; 2016-08-02 09:00)
PROC: 0DB68ZX Excision of Stomach, Via Natural or Artificial Opening Endoscopic, Diagnostic (ICD-10-PCS; 2016-08-02 09:00)
DX: J44.1 Chronic obstructive pulmonary disease with (acute) exacerbation (principal); E43 Unspecified severe protein-calorie malnutrition; K31.84 Gastroparesis; M80.88XA Other osteoporosis with current pathological fracture, vertebra(e), initial encounter for fracture; J96.10 Chronic respiratory failure, unspecified whether with hypoxia or hypercapnia; N13.30 Unspecified hydronephrosis; Z99.81 Dependence on supplemental oxygen; Z68.1 Body mass index [BMI] 19.9 or less, adult; R62.7 Adult failure to thrive; F41.9 Anxiety disorder, unspecified; R68.81 Early satiety; I10 Essential (primary) hypertension; M54.5 Low back pain; G89.29 Other chronic pain; E78.5 Hyperlipidemia, unspecified; N20.0 Calculus of kidney; Z87.442 Personal history of urinary calculi; Z85.3 Personal history of malignant neoplasm of breast; Z88.1 Allergy status to other antibiotic agents; Z88.0 Allergy status to penicillin; Z88.8 Allergy status to other drugs, medicaments and biological substances; Z87.891 Personal history of nicotine dependence; K59.00 Constipation, unspecified; K20.9 Esophagitis, unspecified; K29.70 Gastritis, unspecified, without bleeding; K44.9 Diaphragmatic hernia without obstruction or gangrene; K57.90 Diverticulosis of intestine, part unspecified, without perforation or abscess without bleeding; K63.5 Polyp of colon; K30 Functional dyspepsia; K64.4 Residual hemorrhoidal skin tags; K57.30 Diverticulosis of large intestine without perforation or abscess without bleeding; K64.8 Other hemorrhoids
CPT/HCPCS: 71020; 71260; 72157; 72158; 74000; 74177; 74230; 78264; 80053; 84134; 85025; 86140; 86703; 88305; 88312; 94640; 94664; A9541; A9579; J0456; J1720; J1885; J2060; J2270; J2405; J2765; J2920; J2930; J7030; J7050; J7512; J7613; J7626; L0200; L0484; L0627; Q9963; Q9967

== ENCOUNTER 2017-09-16 11:01 | Emergency (ER) | payer MEDICARE, MEDICAID ==
[~2017-09-16] VITALS: Ht 160 cm; Wt 49.0 kg
[~2017-09-16 11:01] MED LIST changes: -ADVA250A INH; +BUDE.5I NEB; +DOCU1CAP39 PO; +IPRA0.02 NEB; +LISI-515 PO; -MAXZTAB PO; +MEGE40SU PO; +METO10TA PO; +NIFE30TA8 PO; +PANT40TA3 PO; -PRED20 PO
[2017-09-16 11:05] VITALS: BP 172/105; PULSE 127; RESP 30; TEMP 98.1; O2SAT 98
--- NOTE | 2017-09-16 11:13 | PD ---
HPI Chief Complaint: Respiratory Distress Time Seen by Provider: 11:12 Travel History International Travel<30 days: No Contact w/Intl Traveler<30days: No Traveled to known affect area: No History of Present Illness HPI 61-year-old female was brought to the emergency room by EMS emergently for respiratory distress. Patient is in end-stage emphysema under hospice care and hospice was in the house giving [id number] morphine for possible transition to . However when the daughter came in to visit her mother this morning saw her unresponsive and in respiratory distress and got really upset and called 911. Patient continues to remain a GCS of 8. There is a DNR paperwork. I spoke with the daughter and she wanted to respect her mother's wishes and continue the patient to be DNR. Patient is obviously unable to give any meaningful history. I was told by the paramedics that initially when they arrived the oxygen saturation was 87% on 2 L of oxygen. They started giving her breathing treatment and the oxygenation improved to 98%. PFSH Past Medical History Narrative Medical List of her past medical, surgical, social and family history reviewed from the nursing note. Arthritis: Yes Asthma: Yes Autoimmune Disease: No Blood Disorders: No Anxiety: Yes Depression: Yes Heart Rhythm Problems: No Cancer: Yes (L BREAST CA ) Cardiovascular Problems: Yes High Cholesterol: No Chemotherapy: No Chest Pain: Yes Congestive Heart Failure: No COPD: Yes Coronary Artery Disease: No Diabetes: No (questionable) Endocrine: No Gastrointestinal Disorders: Yes (HX GERD) GERD: Yes Genitourinary: Yes ("NARROW URETERS") Headaches: Yes Hepatitis: No Hiatal Hernia: No Hypertension: Yes Immune Disorder: No Kidney Stones: Yes Musculoskeletal: Yes (SCOLIOSIS) Neurologic: Yes (VERTIGO, HEADACHES DAILY) Psychiatric: Yes (CLAUSTRAPHOBIA, ANXIETY, DEPRESSION,PANIC ATTACKS) Reproductive: No Respiratory: Yes (COPD, EMPHYSEMA) Myocardial Infarction: No Radiation Therapy: Yes (2013) Thyroid Disease: No ?: Not Menopausal: Yes Dilation and Curettage (D&C): Yes Past Surgical History Abdominal Surgery: Yes (CHOLECYSTECTOMY) AICD: No Body Medical Devices: N/A Cardiac Surgery: No Cholecystectomy: Yes Ear Surgery: No Endocrine Surgery: No Eye Surgery: Yes (CATARACT BILAT) Genitourinary Surgery: Yes (CYSTO, URETEROSTOMY, CALCULI RETRIEVAL) Gynecologic Surgery: Yes (D+C) Joint Replacement: No Oral Surgery: Yes (UPPER DENTURES) Pacemaker: No Thoracic Surgery: No Other Surgery: Yes (LUMPECTOMY) Social History Alcohol Use: Yes (OCC) Tobacco Use: No (QUIT 2008) Substance Use: No Allergies-Medications (Allergen,Severity, Reaction): Coded Allergies: bupropion (Unverified Allergy, Severe, 09/16/17) cefepime (Unverified Allergy, Severe, ANAPHALACTIC, 09/16/17) DENIES ALLERGY ON 07/22/12!!! STATES ANAPHYLAXIS WAS "PANIC ATTACK" ceftaroline fosamil (Unverified Allergy, Severe, ANAPHALACTIC, 09/16/17) DENIES ALLERGY ON 07/22/12!!! STATES ANAPHYLAXIS WAS "PANIC ATTACK" doxycycline (Unverified Allergy, Severe, 09/16/17) levofloxacin (Unverified Allergy, Severe, SWELLING AND REDNESS, 09/16/17) paroxetine (Unverified Allergy, Severe, 09/16/17) penicillin G (Unverified Allergy, Severe, 09/16/17) theophylline (Unverified Allergy, Severe, Flushing, 09/16/17) Comments List of her allergies reviewed from the nursing note. Reported Meds & Prescriptions Reported Meds & Active Scripts Active Hydrocodone-Acetaminophen 10-325 mg Tab 1 Tab PO Q6H PRN Valium (Diazepam) 5 Mg Tab 5 Mg PO BID PRN Pantoprazole (Pantoprazole Sodium) 40 Mg Tab 40 Mg PO DAILY Nifedipine ER 24 HR (Nifedipine) 30 Mg Tab 30 Mg PO DAILY Metoclopramide (Metoclopramide HCl) 10 Mg Tab 10 Mg PO ACHS Megestrol Liq (Megestrol Acetate) 40 Mg/Ml Susp 400 Mg PO BID Lisinopril 20 Mg Tab 20 Mg PO BID Dok (Docusate Sodium) 100 Mg Cap 100 Mg PO BID Pulmicort Respules (Budesonide) 0.5 Mg/2 Ml Neb 0.5 Mg NEB Q12HR NEB Ipratropium Neb (Ipratropium [place]) 0.5 Mg/2.5 Ml Amp 0.5 Mg NEB Q6HR NEB USE Q6hr SCHEDULED ALONG WITH ALBUTEROL NEBULE Albuterol Neb (Albuterol Sulfate) 1.25 Mg/3 Ml Neb 1.25 Mg NEB Q6HR Q6HRS SCHEDULED AND Q2 HOURS PRN SOB USE WITH ATROVENT NEBULE Reported Celexa (Citalopram Hydrobromide) 20 Mg Tab 20 Mg PO DAILY Zyrtec Allergy (Cetirizine HCl) 10 Mg Tab 10 Mg PO DAILY Proventil Hfa 6.7 GM Inh (Albuterol Sulfate) 90 Mcg/Act Aer 2 Puff INH Q4-6H PRN Narrative Medication List of her home medications reviewed from the nursing note Review of Systems ROS Limitations: Altered Mental Status, Unresponsive Except as stated in HPI: all other systems reviewed are Neg Respiratory: Positive: Shortness of Breath Physical Exam Narrative GENERAL: Unresponsive, moderate respiratory distress SKIN: Focused skin assessment warm/dry. HEAD: Atraumatic. Normocephalic. EYES: Pupils equal and round. No scleral icterus. No injection or drainage. ENT: No nasal bleeding or discharge. Mucous membranes pink and moist. NECK: Trachea midline. No JVD. CARDIOVASCULAR: Regular rate and rhythm. No murmur appreciated. RESPIRATORY: Moderate respiratory distress with accessory muscles used, decreased air entry bilaterally, Kussmaul pattern breathing GASTROINTESTINAL: Abdomen soft, non-tender, nondistended. Hepatic and splenic margins not palpable. MUSCULOSKELETAL: No obvious deformities. No clubbing. No cyanosis. No edema. NEUROLOGICAL: GCS of 8 PSYCHIATRIC: Unable to assess Data Data Last Documented VS Vital Signs Date Time Temp Pulse Resp B/P (MAP) Pulse Ox O2 Delivery O2 Flow Rate FiO2 09/16/17 14:25 123 16 132/85 (101) 92 Nasal Cannula 2.00 09/16/17 11:05 98.1 Orders Orders Complete Blood Count With Diff (09/16/17 11:13) Basic Metabolic Panel (Bmp) (09/16/17 11:13) B-Type Natriuretic Peptide (09/16/17 11:13) Prothrombin Time / Inr (Pt) (09/16/17 11:13) Troponin I (09/16/17 11:13) Arterial Blood Gas (Abg) (09/16/17 11:13) Iv Access Insert/Monitor (09/16/17 11:13) Ecg Monitoring (09/16/17 11:13) Oximetry (09/16/17 11:13) Oxygen Administration (09/16/17 11:13) Chest, Single Ap (09/16/17 11:13) Sodium Chloride 0.9% Flush (Ns Flush) (09/16/17 11:15) Albuterol-Ipratropium Neb (Duoneb Neb) (09/16/17 11:15) Electrocardiogram (09/16/17 11:07) Code Status (09/16/17 12:21) Ed Comfort Care (09/16/17 12:21) NPO (09/16/17 12:21) Resp Oxygen Nasal Cannula (09/16/17 ) Hospice Consult (09/16/17 12:21) Morphine Inj (Morphine Inj) (09/16/17 12:30) Ed Discharge Order (09/16/17 13:40) Labs Laboratory Tests Test 09/16/17 11:13 09/16/17 11:15 Blood Gas Puncture Site RT RADIAL Blood Gas Patient Temperature 98.6 Blood Gas HCO3 43 mmol/L Blood Gas Base Excess 13.2 mmol/L Blood Gas Oxygen Saturation 97 % Arterial Blood pH 7.12 Arterial Blood Partial Pressure CO2 139 mmHg Arterial Blood Partial Pressure O2 196 mmHG Arterial Blood Oxygen Content 21.7 Vol % Arterial Blood Carboxyhemoglobin 0.8 % Arterial Blood Methemoglobin 0.9 % Blood Gas Hemoglobin 15.6 G/DL Oxygen Delivery Device MASK Blood Gas Liter Flow 8 L/M White Blood Count 24.2 TH/MM3 Red Blood Count 5.08 MIL/MM3 Hemoglobin 15.3 GM/DL Hematocrit 46.4 % Mean Corpuscular Volume 91.4 FL Mean Corpuscular Hemoglobin 30.2 PG Mean Corpuscular Hemoglobin Concent 33.1 % Red Cell Distribution Width 12.8 % Platelet Count 513 TH/MM3 Mean Platelet Volume 7.6 FL Neutrophils (%) (Auto) 79.0 % Lymphocytes (%) (Auto) 6.6 % Monocytes (%) (Auto) 13.6 % Eosinophils (%) (Auto) 0.3 % Basophils (%) (Auto) 0.5 % Neutrophils # (Auto) 19.1 TH/MM3 Lymphocytes # (Auto) 1.6 TH/MM3 Monocytes # (Auto) 3.3 TH/MM3 Eosinophils # (Auto) 0.1 TH/MM3 Basophils # (Auto) 0.1 TH/MM3 CBC Comment AUTO DIFF Differential Total Cells Counted 100 Neutrophils % (Manual) 83 % Band Neutrophils % 1 % Lymphocytes % 4 % Monocytes % 8 % Eosinophils % 1 % Neutrophils # (Manual) 21.1 TH/MM3 Metamyelocytes 3 % Differential Comment FINAL DIFF MANUAL Platelet Estimate HIGH Platelet Morphology Comment NORMAL Red Cell Morphology Comment NORMAL Prothrombin Time 9.9 SEC Prothromb Time International Ratio 1.0 RATIO Blood Urea Nitrogen 17 MG/DL Creatinine 0.94 MG/DL Random Glucose 126 MG/DL Calcium Level 9.9 MG/DL Sodium Level 134 MEQ/L Potassium Level 3.9 MEQ/L Chloride Level 84 MEQ/L Carbon Dioxide Level 39.5 MEQ/L Anion Gap 11 MEQ/L Estimat Glomerular Filtration Rate 60 ML/MIN Troponin I LESS THAN 0.02 NG/ML B-Type Natriuretic Peptide 17 PG/ML MDM Medical Decision Making Medical Screen Exam Complete: Yes Emergency Medical Condition: Yes Medical Record Reviewed: Yes Interpretation(s) Twelve-lead EKG was reviewed by me. Normal sinus rhythm, normal axis, motion artifact, tachycardia, nonspecific ST-T wave changes. Heart rate of 128 bpm Differential Diagnosis Respiratory acidosis, acute exacerbation of COPD, pneumonia, CHF Narrative Course 12:46 PM I spoke with the [facility] nurse who came in to the emergency room and she made the whole situation clear when she told me that patient was in a transition to and they were giving her [id number] morphine and Ativan for that. This would explain patient's mental status but also the respiratory acidosis that is noticed. At this point since the step was already taken I proposed to the daughter the option of either having her mother go back to her house and continue with [facility] for comfort care till or be transferred to [facility] and be admitted or transferred to the [facility] facility. Patient did not want her mother to go home and at home. I have ordered comfort care order set and awaiting for [facility] to come and take over at this point. [facility] has transferred the care over to [facility]. 1:40 PM patient will be discharged to hospice care. Procedures EKG Prior to Arrival: No Diagnosis Primary Impression: Encounter for dying care Additional Impressions: Respiratory acidosis End stage COPD Patient Instructions: Moderate Sedation in Children (ED) Disposition: 51 HOSPICE/MED FACILITY Jan Rendon MD Sep 16, 2017 11:13
[2017-09-16 11:14] VITALS: BP 172/105; PULSE 126; RESP 28; O2SAT 98
[2017-09-16] MEDS ORDERED: SODIUM CHLORIDE 0.9% FLUSH 10 ML FLUSH IVF PRN (11:15)
[2017-09-16] MEDS: RESP: ALBUTEROL 2.5 MG/IPRATROPIUM 0.5 MG NEB (SCH) INH ×2 (11:15→11:29)
[2017-09-16 11:24] VITALS: O2SAT 98
[2017-09-16 11:42] LABS: AUTOMATED NEUTROPHIL # 19.1 TH/MM3 (1.8-7.7); BASOPHIL # 0.1 TH/MM3 (0-0.2); BASOPHIL % 0.5 % (0.0-2.0); EOSINOPHIL # 0.1 TH/MM3 (0-0.4); EOSINOPHIL % 0.3 % (0.0-4.0); HEMATOCRIT 46.4 % (35.0-46.0); HEMOGLOBIN 15.3 GM/DL (11.6-15.3); LYMPH % 6.6 % (9.0-44.0); LYMPHOCYTE # 1.6 TH/MM3 (1.0-4.8); MEAN CELL VOLUME 91.4 FL (80.0-100.0); MEAN CORPUSCULAR HEMOGLOBIN 30.2 PG (27.0-34.0); MEAN CORPUSCULAR HGB CONC 33.1 % (32.0-36.0); MEAN PLATELET VOLUME 7.6 FL (7.0-11.0); MONO % 13.6 % (0.0-8.0); MONOCYTE # 3.3 TH/MM3 (0-0.9); PLATELET COUNT 513 TH/MM3 (150-450); RED BLOOD COUNT 5.08 MIL/MM3 (4.00-5.30); RED CELL DISTRIBUTION WIDTH 12.8 % (11.6-17.2); WHITE BLOOD COUNT 24.2 TH/MM3 (4.0-11.0)
[2017-09-16 11:47] LABS: PROTHROMBIN TIME - PATIENT 9.9 SEC (9.8-11.6)
[2017-09-16 12:01] LABS: BICARBONATE 39.5 MEQ/L (21.0-32.0); BLOOD UREA NITROGEN 17 MG/DL (7-18); CALCIUM 9.9 MG/DL (8.5-10.1); CHLORIDE 84 MEQ/L (98-107); CREATININE 0.94 MG/DL (0.50-1.00); GLOMERULAR FILTRATION RATE 60 ML/MIN (>89); GLUCOSE,RANDOM 126 MG/DL (74-106); SODIUM (NA) 134 MEQ/L (136-145)
[2017-09-16 12:04] LABS: TROPONIN I LESS THAN 0.02 NG/ML (0.02-0.05)
--- NOTE | 2017-09-16 12:11 | RADRPT ---
EXAM DATE/TIME: 09/16/2017 11:27 [facility] COMPARISON: CHEST SINGLE AP, June 12, 2016, 19:07. INDICATIONS : Short of breath. MEDICAL HISTORY : Emphysema. Chronic obstructive pulmonary disease. Carcinoma, breast. SURGICAL HISTORY : Cholecystectomy. left breast lumpectomy ENCOUNTER: Initial ACUITY: 1 day PAIN SCORE: Non-responsive. LOCATION: Bilateral chest FINDINGS: A single view of the chest is obtained. Right lung clear. Minimal left basilar subsegmental atelectas is. The cardiomediastinal contours are unremarkable. Tortuous thoracic aorta. Scoliosis.. CONCLUSION: 1. Left basilar subsegmental atelectasis. Bean Mack MD on September 16, 2017 at 12:08 Board Certified Radiologist. This report was verified electronically.
[2017-09-16] MEDS ORDERED: MORPHINE SULFATE 4 MG/ML INJ IV PUSH PRN (12:30)
[2017-09-16 12:38] LABS: BANDS 1 % (0-6); LYMPHOCYTES 4 % (9-44); METAMYELOCYTES 3 % (0-1); MONOCYTES 8 % (0-8); NEUTROPHIL # MANUAL DIFF 21.1 TH/MM3 (1.8-7.7); POLYS (SEG NEUTROPHILS) 83 % (16-70)
[2017-09-16 12:59] VITALS: BP 162/91; PULSE 86; RESP 18; O2SAT 93
[2017-09-16 14:25] VITALS: BP 132/85; PULSE 123; RESP 16; O2SAT 92
--- NOTE | 2017-09-17 09:56 | EKG ---
Date Performed: 09/16/2017 Time Performed: 11:07:39 PTAGE: 61 years EKG: SINUS TACHYCARDIA WITH OCCASIONAL VENTRICULAR PREMATURE COMPLEXES ABNORMAL RHYTHM ECG NO PREVIOUS TRACING DOCTOR: Roberto Carlos Meyers Interpretating Date/Time 09/17/2017 09:55:15
== END 2017-09-16 15:15 | disposition hospice, inpatient (51) ==
LOC: NEPC 11:01
DX: Z51.5 Encounter for palliative care (principal); E87.2 Acidosis; J44.9 Chronic obstructive pulmonary disease, unspecified; I10 Essential (primary) hypertension; K21.9 Gastro-esophageal reflux disease without esophagitis; Z87.891 Personal history of nicotine dependence
CPT/HCPCS: 36600; 71045; 80048; 82805; 83880; 84484; 85007; 85027; 85610; 93005; 94664; 96374; 99285; J2270